=== PATIENT | female | born 1955 | race Caucasian/White ===

== ENCOUNTER 2016-07-20 10:14 | Outpatient (RCR) | payer MEDICARE ==
[~2016-07-20 10:14] MED LIST: ATEN-147 GT; CRS350T PO; DICL75TA2 PO; FLUO40CA PO; GABA-488 PO; METH4TAB PO; METO-270 PO; OMEP20CA12 PO; ONDN4T PO; OXYC30TA80 PO; OXYCONTIN; PERCOCET; SENN-36 PO
== END 2016-09-02 15:07 | disposition home or self-care (01) ==
PROVIDERS: ATTEND Family Medicine
DX: M54.2 Cervicalgia (principal)

== ENCOUNTER 2016-08-03 10:50 | Outpatient (RCR) | payer MEDICARE | END 2016-11-01 | disposition home or self-care (01) | LOC: CARD 10:50 | PROVIDERS: ATTEND Internal Medicine Cardiovascular Disease | DX: G89.4 Chronic pain syndrome (principal); I34.0 Nonrheumatic mitral (valve) insufficiency; R00.2 Palpitations; R06.02 Shortness of breath | CPT/HCPCS: 93225; 93226 ==

== ENCOUNTER → 2016-11-30 | Outpatient (CLI) | payer MEDICARE ==
--- NOTE | 2016-11-30 12:17 | Diagnostic Imaging Report ---
PROCEDURE: MRI lumbar spine. TECHNIQUE: Multiplanar, multisequence MRI of the lumbar spine was performed without contrast. INDICATION: Back pain. FINDINGS: There is a minimal retrolisthesis of L5 over S1. The alignment of the posterior spinal line otherwise is satisfactory. The vertebral body heights are preserved. There is disc desiccation at most levels. There is significant disc height loss at L2/3 and mild disc height loss at L3/4 and L5/S1 levels. There is mild marrow edema along endplates of L2/L3 and L5/S1 levels suggestive of reactive changes to degenerative disc disease. There is no suspicious focal bone marrow abnormality identified. The cauda equina and conus medullaris appear grossly unremarkable. T12/L1: No disc herniation, no spinal canal or foraminal stenosis. There are bilateral perineural cysts measuring 8 mm on each side. L1/2: There is a mild disc bulge and mild facet hypertrophy. No central canal or lateral recess stenosis. No foraminal narrowing. L2/3: There is a diffuse disc bulge and mild facet and ligamentum flavum hypertrophy. There is bilateral minimal lateral recess stenosis with no central canal stenosis. The foramina demonstrate no significant narrowing. L3/4: There is a disc bulge asymmetric to the left side and there is bilateral mild to moderate facet hypertrophy. There is a severe central canal stenosis reducing the AP dimension of the canal to 5.4 mm and there is bilateral lateral recess stenosis severe on the left side and moderate to severe on the right. There is also foraminal stenosis mild to moderate on the right side and moderate to severe on the left. L4/5: There is an asymmetric disc bulge to the left side and bilateral moderate facet and ligamentum flavum hypertrophy. No central canal stenosis. There is moderate to severe stenosis in the left lateral recess abutting the descending left L5 nerve root. Mild right lateral recess stenosis is seen. No foraminal narrowing. L5/S1: There is a minimal retrolisthesis at this level and a diffuse disc bulge asymmetric to the left. There are bilateral mild facet hypertrophy changes. There is no central canal stenosis. The lateral recess demonstrates mild to moderate stenosis bilaterally. The foramina demonstrate mild stenosis bilaterally more prominent on the right side. IMPRESSION: Severe spinal canal stenosis at L3/4 level. Dictated by: Dictated on workstation # [id number]
== END ==
LOC: RAD 07:18
PROVIDERS: ATTEND Nurse Practitioner Family
DX: M48.061 Spinal stenosis, lumbar region without neurogenic claudication (principal)
CPT/HCPCS: 72148

== ENCOUNTER → 2017-05-18 | Outpatient (CLI) | payer MEDICARE ==
[~2017-05-18] MED LIST changes: -METO-270 PO; +METO-387 PO
--- NOTE | 2017-05-18 09:35 | Diagnostic Imaging Report ---
Procedure: Bilateral breast ultrasound limited. Indication: Nipple discharge The diagnostic mammogram performed earlier today failed to show any sign of malignancy. There is no abnormality to account for the patient's bilateral nipple discharge. On this study there is no discrete solid or cystic mass identified. There are few ducts within each retroareolar region but these ducts do not seem to be abnormally dilated and there is no sign of an intraductal mass. Impression: There is no evidence for malignancy and there is no sign of an abnormality to account for the patient's nipple discharge. Clinical followup is recommended. ACR BI-RADS Category 1: Negative. Result letter will be mailed to the patient. Note: At least 10% of breast cancer is not imaged by mammography. Dictated by: Dictated on workstation # [id number]
--- NOTE | 2017-05-19 21:04 | Diagnostic Imaging Report ---
Digital mammogram bilateral diagnostic. The current study was also evaluated with a Computer Aided Detection (CAD) system. INDICATION: Bilateral nipple discharge. This study was compared to the prior exams of 12/16/2015, 03/12/2013, and 02/01/2012. At this time, the patient does note long-standing clear bilateral nipple discharge. FINDINGS: The fibroglandular tissue in both retroareolar regions is heterogeneously dense. This does limit the sensitivity of this exam. When compared to the previous studies, there has been no significant change. There is no primary or secondary sign of malignancy noted. There is no abnormality to account for the patient's nipple discharge. IMPRESSION: 1. There is no evidence of malignancy and there is no abnormality to account for the patient's bilateral nipple discharge. Even so, ultrasound will be recommended for further evaluation of both retroareolar regions. ACR BI-RADS Category 0: Incomplete. (Needs additional imaging evaluation). Result letter will be mailed to the patient. Note: At least 10% of breast cancer is not imaged by mammography. Dictated by: Dictated on workstation # [id number]
== END ==
LOC: RAD 08:02
PROVIDERS: ATTEND Family Medicine
DX: N64.52 Nipple discharge (principal)
CPT/HCPCS: 76642; 77066

== ENCOUNTER → 2017-05-26 | Outpatient (CLI) | payer MEDICARE ==
--- NOTE | 2017-05-26 11:44 | Diagnostic Imaging Report ---
EXAM: CT CHEST SCREENING WO INDICATION: 95-ghmx-uhcv smoking history. COMPARISON: CT chest without contrast 12/16/2015. FINDINGS: The lungs are clear. No pulmonary nodules. No pleural effusion or pneumothorax. Diffuse bronchial wall thickening. No endobronchial lesions. Normal heart size. No pleural or pericardial effusions. No mediastinal, hilar or axillary lymphadenopathy. Mild atherosclerotic calcifications. The visualized upper abdominal contents are unremarkable. No acute osseous findings. IMPRESSION: No pulmonary nodules. LungRads category 1. RECOMMENDATION: Continue annual screening with low dose chest CT in 12 months. Please note that the low-dose technique of this chest CT is of non-diagnostic quality. This study is only intended for lung cancer screening of high risk patients. Dictated by: Dictated on workstation # [id number]
== END ==
LOC: RAD 11:00
PROVIDERS: ATTEND Family Medicine
DX: F17.210 Nicotine dependence, cigarettes, uncomplicated (principal)

== ENCOUNTER → 2019-03-13 | Outpatient (CLI) | payer MEDICARE, OTHER ==
[~2019-03-13] MED LIST changes: -METO-387 PO; +MTP25TSR PO
--- NOTE | 2019-03-13 10:42 | Diagnostic Imaging Report ---
PROCEDURE: CT chest without contrast. TECHNIQUE: Multiple contiguous axial images were obtained through the chest without the use of intravenous contrast. Auto Exposure Controls were utilized during the CT exam to meet ALARA standards for radiation dose reduction. INDICATION: Chronic cough. FINDINGS: The previous CT low-dose lung cancer screening exam of 05/26/2017 failed to show any sign of a parenchymal lung mass that would indicate a malignant process. On this study there is still no evidence for a parenchymal lung mass. The lungs are generally clear and well aerated. There is no sign of failure, pneumonia or a pleural effusion to indicate an acute abnormality. The heart size is within normal limits. Coronary artery calcifications are evident. The aorta is not abnormally dilated. There is no obvious mediastinal or hilar adenopathy. The thyroid gland where visualized is unremarkable. There is no breast mass noted. The sections through the upper abdomen failed to show any sign of an acute abnormality. The bone windows are unremarkable for a fracture or for a destructive lesion. IMPRESSION: 1. There is no evidence for an acute cardiopulmonary abnormality. There is no parenchymal lung mass to suggest malignancy either. 2. Given the patient's history of a greater than thirty-year pack smoking history a follow-up CT low-dose lung cancer screening exam in one year would be recommended for further evaluation. Dictated by: Dictated on workstation # [id number]
== END ==
LOC: RAD 08:38
PROVIDERS: ATTEND Family Medicine
DX: R05 Cough (principal); F17.290 Nicotine dependence, other tobacco product, uncomplicated
CPT/HCPCS: 71250

== ENCOUNTER 2019-03-14 05:58 | Outpatient (CLI) | payer MEDICARE ==
[~2019-03-14] VITALS: Ht 157.5 cm; Wt 55.5 kg
== END 2019-03-14 09:27 | disposition home or self-care (01) ==
LOC: PREOP 05:58
PROVIDERS: ATTEND Internal Medicine
DX: Z01.818 Encounter for other preprocedural examination (principal)

== ENCOUNTER 2019-03-16 08:08 | Day surgery (SDC) | payer MEDICARE, OTHER ==
--- NOTE | 2019-03-13 10:32 | HISTORY AND PHYSICAL ---
DATE OF SERVICE: ESOPHAGOGASTRODUODENOSCOPY HISTORY AND PHYSICAL HISTORY OF PRESENT ILLNESS: The patient is a 64-year-old white female who had at least a 10-pound weight loss over the past year with intermittent dysphagia to solids. She has some burning association despite using b.i.d. omeprazole and p.r.n. antacid therapy. She reports that she had tried pantoprazole taking it just once a day and did not think it worked any better than b.i.d. omeprazole, so she went back to the omeprazole. With this, she has had a chronic cough with an extensive past smoking history and continues to smoke about a pack a day. She denies associated abdominal pain, melena or bright red blood per rectum. I previously performed colonoscopy on her in 2014, at which time she had one hyperplastic polyp removed. She is not aware of any family history for colon cancer. PAST MEDICAL HISTORY: Significant for longstanding low back pain for which she takes diclofenac and oxycodone. She has no known history of coronary artery disease. PAST SURGICAL HISTORY: As a child, she underwent right nephrectomy not for malignant reasons and she has had a tubal ligation in the past. FAMILY HISTORY: Father of complications of coronary artery disease at age 65. He was reportedly a smoker. Mother at the age of 59 of complications of diabetes. There is no reported family history of known GI tract malignancy. SOCIAL HISTORY: She reports no significant alcohol consumption history, but does have a 40 plus pack year smoking history, continues to smoke a pack of cigarettes per day. REVIEW OF SYSTEMS: CONSTITUTIONAL: 10 plus pound weight loss. Denies night sweats, chills or fever. CARDIOVASCULAR: Denies chest pain, syncope, presyncope, orthopnea, PND or pedal edema. PULMONARY: Pertinent for a nonproductive cough for the past year. No drainage is noted. She denies wheezing. GASTROINTESTINAL: As noted in the HPI. PHYSICAL EXAMINATION: GENERAL: Reveals a white female who did exhibit a dry sounding nonproductive cough during the interview. VITAL SIGNS: Weight 122 pounds, BMI 23, blood pressure 130/80. HEENT: Unremarkable. Mallampati II pharyngeal configuration. No erythema or exudate noted. Sclerae are nonicteric. NECK: Revealed no JVD, adenopathy or bruits. CHEST: Clear to auscultation. No wheezes, rales or rhonchi noted. ABDOMEN: Soft, supple without mass, organomegaly or tenderness. Bowel sounds positive. No evidence for abdominal aortic aneurysm to palpation. EXTREMITIES: Reveal no cyanosis, clubbing or edema. ASSESSMENT AND PLAN: Due to her weight loss, intermittent dysphagia with chronic cough, the patient is set up for diagnostic EGD on 03/16/2019. Prep instructions were given and questions were answered. I thank you for the referral of this pleasant lady. As there is no family history for colon cancer with last colonoscopy 5 years ago only revealing one diminutive hyperplastic polyp, which would advocate consideration for repeat screening colonoscopy in another 5 years. Job ID: [id number] DocumentID: [id number] Dictated Date: 03/13/2019 10:04:12 Sweatband Cutting Machine Operator Date: 03/13/2019 10:31:47 Dictated By: TERESITA LEPE MD
[~2019-03-16] VITALS: Ht 157.5 cm; Wt 55.5 kg
[2019-03-16] VITALS (8 sets, daily range): BP systolic 112–142; BP diastolic 53–82
[2019-03-16] MEDS ORDERED: D5 LR IV SOLUTION 1,000 ML IV STA (08:17)
[2019-03-16] MEDS ORDERED: D5 LR IV SOLUTION 1,000 ML IV ONE (08:21)
[2019-03-16] MEDS ORDERED: LIDOCAINE JELLY 2% 6 ML SYRINGE MM PRN (08:30)
[2019-03-16] MEDS ORDERED: fentaNYL INJECTION 100 MCG/2 ML AMP IVP ONE (08:30)
[2019-03-16] MEDS ORDERED: MIDAZOLAM 5 MG/5 ML (VERSED) VIAL ONE (08:45)
[2019-03-16] MEDS ORDERED: fentaNYL INJECTION 100 MCG/2 ML AMP ONE (08:45)
[2019-03-16] MEDS ORDERED: LIDOCAINE JELLY 2% 6 ML SYRINGE ONE (08:45)
--- NOTE | 2019-03-16 08:48 | Pre-Op Note & Conscious Sedat ---
Pre-Operative Progress Note H&P Reviewed The H&P was reviewed, patient examined and no changes noted. Date H&P Reviewed: Mar 16, 2019 Time H&P Reviewed: 08:30 Conscious Sedation Pre-Proced ASA Score 2 For ASA 3 and 4: Consider anesthesia and medical clearance. Also, for patients with a history of failed moderate sedation consider anesthesia. Airway Lungs Heart ASA score ASA 1: a normal healthy patient ASA 2: a patient with a mild systemic disease (mid diabetes, controlled hypertension, obesity ASA 3: a patient with a severe systemic disease that limits activity (angina, COPD, prior Myocardial infarction) ASA 4: a patient with an incapacitating disease that is a constant threat to life (CHF, renal failure) ASA 5: a moribund patient not expected to survive 24 hrs. (ruptured aneurysm) ASA 6: a declared brain- patient whose organs are being harvested. For emergent operations, add the letter E after the classification Mallampati Classification Grade 2 Sedation Plan Analgesia, Amnesia, Plan communicated to team members, Discussed options with patient/fam, Discussed risks with patient/fam The patient is an appropriate candidate to undergo the planned procedure, sedation, and anesthesia. The patient immediately re-assessed prior to indication. TERESITA LEPE MD Mar 16, 2019 08:48
[2019-03-16] MEDS: MIDAZOLAM 5 MG/5 ML (VERSED) VIAL IV PRN ×2 (08:53→08:56)
--- NOTE | 2019-03-16 14:25 | OPERATIVE REPORT ---
DATE OF SERVICE: EGD is performed for evaluation of dysphagia and reflux sounding symptoms. The patient was placed in the left lateral decubitus position. The endoscope was inserted in the oral cavity and under direct visualization, esophagus was intubated. The endoscope was passed down the esophagus through the stomach and second portion of the duodenum. The patient tolerated the procedure well. Careful inspection was made as the endoscope was withdrawn. FINDINGS: The posterior pharynx, arytenoid aperture, true and false vocal folds were unremarkable on gross inspection. The proximal, mid and distal esophagus were unremarkable. There is no evidence for hiatal hernia formation. The Z line was distinct. No evidence for erythema, Rain's change, rings, webs, strictures or extrinsic compression, murmur noted. The cardia and fundus of the stomach were unremarkable. Present in the antrum were some patchy areas of erythema without evidence for erosions or ulceration. No evidence for retained fluid or food was noted. A biopsy was obtained and submitted for Helicobacter. The pylorus, pyloric channel, duodenal bulb and second portion of duodenum were unremarkable. ASSESSMENT: Except for some small areas of patchy antral erythema, this was otherwise normal EGD. Biopsies obtained and submitted for Helicobacter evaluation. There is no evidence for erosive esophagitis or extrinsic compression. Discussed the importance of careful attention to mastication and drinking some water with her meals and as she tends to be a fast eater trying to slow down. She was reassured by today's findings. Thank you for the referral. Job ID: [id number] DocumentID: [id number] Dictated Date: 03/16/2019 09:46:44 Builder Operator Date: 03/16/2019 14:24:13 Dictated By: TERESITA LEPE MD [facility]
== END 2019-03-16 09:50 ==
LOC: ENDO 08:08
PROVIDERS: ATTEND Internal Medicine
DX: K31.89 Other diseases of stomach and duodenum (principal); R13.10 Dysphagia, unspecified; F17.210 Nicotine dependence, cigarettes, uncomplicated; Z88.2 Allergy status to sulfonamides; Z79.891 Long term (current) use of opiate analgesic; Z90.5 Acquired absence of kidney; Z98.51 Tubal ligation status; Z82.49 Family history of ischemic heart disease and other diseases of the circulatory system; Z83.3 Family history of diabetes mellitus

== ENCOUNTER 2019-09-22 10:27 | Emergency (ER) | payer MEDICARE, OTHER ==
[~2019-09-22] VITALS: Ht 160 cm; Wt 59.0 kg
--- NOTE | 2019-09-22 11:04 | ED Cough/URI ---
General Stated Complaint: HX COPD,FEVER,COUGH,SOB Source: patient Exam Limitations: no limitations History of Present Illness Date Seen by Provider: Sep 22, 2019 Time Seen by Provider: 11:01 Initial Comments to ER with reports of increase in her chronic cough, fever up to 100.2, sharp pain in the left side of her chest radiating through to the back constant since last night. . Timing/Duration: yesterday Severity/Quality: moderate Prior Episodes/Possible Cause: occasional episodes Associated Symptoms: chest pain/soreness, cough, fever/chills, shortness of breath (next) Allergies and Home Medications Allergies Coded Allergies: methadone (Unverified Adverse Reaction, Severe, swelling, 08/05/13) Sulfa (Sulfonamide Antibiotics) (Unverified Adverse Reaction, Mild, hives, 08/05/13) Home Medications Carisoprodol 350 Mg Tablet, 350 MG PO Q4H PRN for BACK PAIN, (Reported) Diclofenac Sodium 75 Mg Tablet.dr, 75 MG PO BID, (Reported) Gabapentin 300 Mg Capsule, 300 MG PO TID, (Reported) Metoprolol Succinate 25 Mg Tab.er.24h, 25 MG PO DAILY, (Reported) Omeprazole 20 Mg Capsule.dr, 20 MG PO BID, (Reported) Ondansetron HCl 4 Mg Tab, 4 MG PO PRN PRN for NAUSEA/VOMITING, (Reported) Oxycodone Hcl 30 Mg Tablet, 30 MG PO Q4H PRN for BACK PAIN, (Reported) Sennosides 8.6 Mg Tablet, 8.6 MG PO DAILY, (Reported) Patient Home Medication List Home Medication List Reviewed: Yes Review of Systems Review of Systems Constitutional: see HPI, chills, fever EENTM: see HPI Respiratory: see HPI, cough, short of breath Cardiovascular: see HPI, chest pain Gastrointestinal: see HPI Genitourinary: see HPI Musculoskeletal: see HPI Skin: see HPI Psychiatric/Neurological: See HPI Past Rclzypt-Tkrycw-Nxhtvr Hx Patient Social History Type Used: Cigarettes Recent Hopitalizations: No Immunizations Up To Date Date of Influenza Vaccine: Feb 18, 2019 Seasonal Allergies Seasonal Allergies: No Past Medical History Surgeries: Yes (RIGHT NEPHRECTOMY, X3 BACK SURGERY, SINUS) Orthopedic Respiratory: No Cardiac: Yes Palpitations Neurological: Yes (HX RADICULOPATHY) Reproductive Disorders: No Genitourinary: No Gastrointestinal: Yes Gastroesophageal Reflux, Chronic Constipation Musculoskeletal: Yes Chronic Back Pain Endocrine: No HEENT: No Cancer: No Psychosocial: Yes Depression Integumentary: No Blood Disorders: No Family Medical History Heart Disease, Diabetes Physical Exam Vital Signs - First Documented 09/22/19 10:45 Temp 36.8 Pulse 65 Resp 18 B/P (MAP) 126/52 (76) O2 Delivery Room Air Capillary Refill : Height: 5'2.00" Weight: 131lbs. oz. 59.122723kv; 22.37 BMI Method:Stated General Appearance: WD/WN, no apparent distress (are all normal) Eyes: Bilateral Eye Normal Inspection HEENT: PERRL/EOMI, normal ENT inspection Neck: non-tender, full range of motion (wall) Respiratory: lungs clear, normal breath sounds Cardiovascular: regular rate, rhythm Gastrointestinal: non tender, soft Extremities: normal range of motion, non-tender Neurologic/Psychiatric: alert, oriented x 3 Skin: normal color, warm/dry Progress/Results/Core Measures Suspected Sepsis SIRS Temperature: Pulse: Respiratory Rate: Laboratory Tests 09/22/19 11:05: White Blood Count 6.3 Blood Pressure / Mean: Laboratory Tests 09/22/19 11:05: Creatinine 1.05, Platelet Count 336, Total Bilirubin 0.3 Results/Orders Lab Results Laboratory Tests Test 09/22/19 11:05 Range/Units White Blood Count 6.3 4.3-11.0 10^3/uL Red Blood Count 3.69 L 4.35-5.85 10^6/uL Hemoglobin 11.9 11.5-16.0 G/DL Hematocrit 35 35-52 % Mean Corpuscular Volume 95 80-99 FL Mean Corpuscular Hemoglobin 32 25-34 PG Mean Corpuscular Hemoglobin Concent 34 32-36 G/DL Red Cell Distribution Width 13.9 10.0-14.5 % Platelet Count 336 130-400 10^3/uL Mean Platelet Volume 9.4 7.4-10.4 FL Neutrophils (%) (Auto) 43 42-75 % Lymphocytes (%) (Auto) 45 H 12-44 % Monocytes (%) (Auto) 8 0-12 % Eosinophils (%) (Auto) 4 0-10 % Basophils (%) (Auto) 1 0-10 % Neutrophils # (Auto) 2.7 1.8-7.8 X 10^3 Lymphocytes # (Auto) 2.8 1.0-4.0 X 10^3 Monocytes # (Auto) 0.5 0.0-1.0 X 10^3 Eosinophils # (Auto) 0.2 0.0-0.3 10^3/uL Basophils # (Auto) 0.0 0.0-0.1 10^3/uL D-Dimer 0.34 0.00-0.49 UG/ML Sodium Level 135 135-145 MMOL/L Potassium Level 4.4 3.6-5.0 MMOL/L Chloride Level 103 98-107 MMOL/L Carbon Dioxide Level 23 21-32 MMOL/L Anion Gap 9 5-14 MMOL/L Blood Urea Nitrogen 12 7-18 MG/DL Creatinine 1.05 0.60-1.30 MG/DL Estimat Glomerular Filtration Rate 53 BUN/Creatinine Ratio 11 Glucose Level 84 70-105 MG/DL Calcium Level 8.5 8.5-10.1 MG/DL Corrected Calcium 8.6 8.5-10.1 MG/DL Total Bilirubin 0.3 0.1-1.0 MG/DL Aspartate Amino Transf (AST/SGOT) 14 5-34 U/L Alanine Aminotransferase (ALT/SGPT) 10 0-55 U/L Alkaline Phosphatase 59 40-136 U/L Troponin I < 0.028 <0.028 NG/ML C-Reactive Protein High Sensitivity 0.09 0.00-0.50 MG/DL Total Protein 6.5 6.4-8.2 GM/DL Albumin 3.9 3.2-4.5 GM/DL My Orders Orders - LETTY SHARMA MOTION PICTURE COMMENTATOR Cbc With Automated Diff (09/22/19 10:39) Hs C Reactive Protein (09/22/19 10:39) Chest 1 View, Ap/Pa Only (09/22/19 10:39) Comprehensive Metabolic Panel (09/22/19 10:39) Coronavirus Sars-Cov-2 So 2018 (09/22/19 10:39) Fibrin Degradation Products (09/22/19 10:58) Troponin I (09/22/19 10:58) Ekg Tracing (09/22/19 10:58) Vital Signs/I&O 09/22/19 09/22/19 10:45 10:45 Temp 36.8 Pulse 65 Resp 18 B/P (MAP) 126/52 (76) O2 Delivery Room Air Capillary Refill : Departure Impression Primary Impression: COPD exacerbation Disposition: 01 HOME, SELF-CARE Condition: Stable Departure-Patient Inst. Decision time for Depature: 12:07 Referrals: MERCEDES ALFARO MD (PCP/Family) Primary Care Physician Patient Instructions: Exacerbation of COPD Add. Discharge Instructions: return to er for any worsening, see your doctor next week. antibiotics and steroids as directed Scripts Prednisone (Prednisone) 20 Mg Tab 40 MG PO DAILY, #6 TAB 0 Refills Prov: LETTY SHARMA APRN 09/22/19 Azithromycin (Zithromax) 250 Mg Tablet 250 MG PO UD, #6 TAB TAKE 2 TABLETS TODAY, THEN TAKE 1 TABLET DAILY FOR 4 MORE DAYS Prov: LETTY SHARMA APRN 09/22/19 LETTY SHARMA APRN Sep 22, 2019 11:04
--- NOTE | 2019-09-22 11:24 | Diagnostic Imaging Report ---
EXAMINATION: Chest 1 view HISTORY: cough COMPARISON: 11/01/2013 FINDINGS: The lungs are clear without edema or pneumonia. No pleural effusion or pneumothorax. Heart size is normal. IMPRESSION: 1. Clear lungs. Dictated by: Dictated on workstation # [id number]
[2019-09-22 11:37] LABS: BASOPHILS % (AUTO) 1 % (0-10); EOSINOPHILS # (AUTO) 0.2 10^3/uL (0.0-0.3); EOSINOPHILS % (AUTO) 4 % (0-10); HEMATOCRIT 35 % (35-52); HEMOGLOBIN 11.9 G/DL (11.5-16.0); LYMPHOCYTES # (AUTO) 2.8 X 10^3 (1.0-4.0); LYMPHOCYTES % (AUTO) 45 % (12-44); MEAN CORPUSCULAR HEMOGLOBIN 32 PG (25-34); MEAN CORPUSCULAR HGB CONC 34 G/DL (32-36); MEAN CORPUSCULAR VOLUME 95 FL (80-99); MEAN PLATELET VOLUME 9.4 FL (7.4-10.4); MONOCYTES # (AUTO) 0.5 X 10^3 (0.0-1.0); MONOCYTES % (AUTO) 8 % (0-12); NEUTROPHILS # (AUTO) 2.7 X 10^3 (1.8-7.8); NEUTROPHILS % (AUTO) 43 % (42-75); PLATELET COUNT 336 10^3/uL (130-400); RED CELL DISTRIBUTION WIDTH 13.9 % (10.0-14.5); WHITE BLOOD COUNT 6.3 10^3/uL (4.3-11.0)
[2019-09-22 11:56] LABS: ALANINE AMINOTRANSFERASE 10 U/L (0-55); ALBUMIN 3.9 GM/DL (3.2-4.5); ALKALINE PHOSPHATASE 59 U/L (40-136); BILIRUBIN,TOTAL 0.3 MG/DL (0.1-1.0); BUN/CREATININE RATIO 11; CALCIUM 8.5 MG/DL (8.5-10.1); CARBON DIOXIDE 23 MMOL/L (21-32); CHLORIDE 103 MMOL/L (98-107); CREATININE SERUM 1.05 MG/DL (0.60-1.30); GFR ESTIMATED 53; GLUCOSE 84 MG/DL (70-105); POTASSIUM 4.4 MMOL/L (3.6-5.0); SODIUM 135 MMOL/L (135-145); TOTAL PROTEIN 6.5 GM/DL (6.4-8.2)
[2019-09-22 12:08] VITALS: BP 115/47
[2019-09-22] MEDS ORDERED: PRD20T PO (12:09)
[2019-09-22] MEDS ORDERED: AZIT250T PO (12:09)
== END 2019-09-22 12:14 | disposition home or self-care (01) ==
LOC: EDUNIT# 10:27 → ER 10:28
DX: J44.1 Chronic obstructive pulmonary disease with (acute) exacerbation (principal); K21.9 Gastro-esophageal reflux disease without esophagitis; G89.29 Other chronic pain; M54.9 Dorsalgia, unspecified; K59.09 Other constipation; Z20.828 Contact with and (suspected) exposure to other viral communicable diseases; Z88.5 Allergy status to narcotic agent; Z88.2 Allergy status to sulfonamides; Z79.891 Long term (current) use of opiate analgesic; Z82.49 Family history of ischemic heart disease and other diseases of the circulatory system
CPT/HCPCS: 71045; 80053; 84484; 85025; 85379; 86141; 99284; U0002; 36415; 87635; 93005

== ENCOUNTER 2019-12-14 09:32 | Outpatient (RCR) | payer MEDICARE, OTHER ==
[~2019-12-14 09:32] MED LIST changes: +AZIT250T PO; +PRD20T PO
== END 2020-02-18 10:45 | disposition home or self-care (01) ==
PROVIDERS: ATTEND Family Medicine
DX: M54.5 Low back pain (principal)

== ENCOUNTER → 2019-12-28 | Outpatient (CLI) | payer MEDICARE, OTHER ==
--- NOTE | 2019-12-28 11:06 | Diagnostic Imaging Report ---
INDICATION: Chronic neck pain. Time of exam 9:50 AM Three-view cervical spine were obtained. Curvature of the cervical spine is normal. There is minimal anterolisthesis of C3 on C4, C4 on C5, and C7 on T1, with minimal retrolisthesis of C5 on C6. Multilevel degenerative disc disease is noted with variable disc space narrowing and marginal spurring. There is multilevel facet arthropathy. No fractures are seen. Prevertebral tissues are within normal limits. IMPRESSION: Cervical spondylosis and listhesis. No acute bony abnormality is detected. Dictated by: Dictated on workstation # [id number]
--- NOTE | 2019-12-28 11:35 | Diagnostic Imaging Report ---
INDICATION: Back pain. Time of exam 9:54 AM There is normal thoracic kyphotic curvature. Very slight right convexity thoracic scoliotic curvature is noted. Vertebral body heights are maintained. No acute compression fracture is seen. Pedicles and paraspinous line are intact. IMPRESSION: No acute bony abnormality is detected. Dictated by: Dictated on workstation # [id number]
== END ==
LOC: RAD 09:30
PROVIDERS: ATTEND Nurse Practitioner Family
DX: M47.812 Spondylosis without myelopathy or radiculopathy, cervical region (principal); M43.12 Spondylolisthesis, cervical region
CPT/HCPCS: 72040; 72072

== ENCOUNTER → 2020-03-14 | Outpatient (CLI) | payer MEDICARE, OTHER ==
--- NOTE | 2020-03-14 08:59 | Diagnostic Imaging Report ---
EXAMINATION: CT Chest without contrast (lung screening). TECHNIQUE: Multiple contiguous axial images were obtained through the chest without the use of intravenous contrast according to lung cancer screening protocol. All CT scans use one or more of the following dose optimizing techniques: automated exposure control, MA and/or KvP adjustment based on a patient size and exam type, or iterative reconstruction. HISTORY: 30 pack year history of smoking. COMPARISON: 05/26/2017 FINDINGS: There is no edema or pneumonia. No pleural effusion. No pneumothorax. No suspicious nodules. There is no axillary or supraclavicular lymphadenopathy. There is no mediastinal lymphadenopathy. Heart size is normal. There are mild coronary artery calcifications. No pericardial effusion. Aorta is normal in caliber. Limited views of the upper abdomen are unremarkable. There are no suspicious osseus lesions. IMPRESSION: 1. No suspicious pulmonary nodules. LUNG-RADS CATEGORY: 1 MODIFIER: None. Dictated by: Dictated on workstation # [id number]
== END ==
LOC: RAD 08:15
PROVIDERS: ATTEND Nurse Practitioner Family
DX: Z12.2 Encounter for screening for malignant neoplasm of respiratory organs (principal); F17.210 Nicotine dependence, cigarettes, uncomplicated
CPT/HCPCS: 71271

== ENCOUNTER → 2020-11-14 | Outpatient (CLI) | payer MEDICARE, OTHER ==
--- NOTE | 2020-11-14 14:03 | Diagnostic Imaging Report ---
PROCEDURE: MRI lumbar spine. TECHNIQUE: Multiplanar, multisequence MRI of the lumbar spine was performed without contrast. INDICATION: Lumbar back pain. COMPARISON: Lumbar spine MRI without contrast 11/30/2016. FINDINGS: Moderate left apex lumbar curvature. Alignment is otherwise unremarkable. Vertebral body heights preserved. Moderate degenerative endplate changes at L2-S1. No suspicious bone marrow signal. No abnormal signal in the conus which terminates at L1-L2. Normal morphology of the cauda equina. Visualized pelvis and paravertebral soft tissues are unremarkable. L1-L2: Mild facet arthropathy. No spinal canal, lateral recess narrowing. Lumbar curvature contributes to mild to moderate right neural foraminal narrowing. L2-L3: Ligamentous hypertrophy and facet arthropathy combined with broad-based disc bulging to result in moderate right and mild left lateral recess narrowing. Moderate right and mild left neural foraminal narrowing. No substantial spinal canal narrowing. L3-L4: Annular disc bulging, ligamentous hypertrophy and facet arthropathy result in moderate spinal canal stenosis. Severe left lateral recess narrowing. Severe bilateral neural foraminal narrowing. L4-L5: Left paracentral disc extrusion with inferior migration has progressed since prior exam. This results in severe spinal canal stenosis. Moderate bilateral neural foraminal narrowing. L5-S1: Left paracentral disc extrusion results in moderate left lateral recess and mild right lateral recess narrowing. No substantial spinal canal narrowing. Moderate bilateral neural foraminal narrowing. IMPRESSION: 1. Interval progression of spondylotic changes now result in severe spinal canal stenosis at L4-L5, moderate spinal canal stenosis at L3-L4. 2. Multilevel high-grade lateral recess and neural foraminal narrowing detailed above. Dictated by: Dictated on workstation # [id number]
== END ==
LOC: RAD 10:45
PROVIDERS: ATTEND Nurse Practitioner Family
DX: M47.816 Spondylosis without myelopathy or radiculopathy, lumbar region (principal); M51.26 Other intervertebral disc displacement, lumbar region; M48.061 Spinal stenosis, lumbar region without neurogenic claudication; M24.28 Disorder of ligament, vertebrae
CPT/HCPCS: 72148

== ENCOUNTER → 2021-06-02 | Outpatient (CLI) | payer MEDICARE, OTHER ==
--- NOTE | 2021-06-02 15:59 | Diagnostic Imaging Report ---
INDICATION: Routine screening. COMPARISON: 05/18/2017 and 12/16/2015. TECHNIQUE: 2D and 3D bilateral screening mammography was performed with CAD. FINDINGS: Scattered fibroglandular densities are identified bilaterally. The parenchymal pattern is stable. No mass or malignant-appearing microcalcifications are seen. The axillae are unremarkable. IMPRESSION: No mammographic features suspicious for malignancy are identified. ACR BI-RADS Category 1: Negative. Result letter will be mailed to the patient. Note: At least 10% of breast cancer is not imaged by mammography. Dictated by: Dictated on workstation # [id number]
--- NOTE | 2021-06-02 16:30 | Diagnostic Imaging Report ---
INDICATION: Asymptomatic postmenopausal female. COMPARISON: None. FINDINGS: AP Spine L1-L4: [BMD (g/cm2): NA] [T-Score: NA] [Z-Score: NA] [BMD Previous: NA] [BMD % Change: NA] LT Hip Neck: [BMD (g/cm2): 0.694] [T-Score: -2.5] [Z-Score: -0.7] LT Hip Total: [BMD (g/cm2):0.683] [T-Score:-2.6] [Z-Score: -1.0] [BMD Previous: NA] [BMD % Change: NA] RT Hip Neck: [BMD (g/cm2):0.692] [T-Score:-2.5] [Z-Score:-0.7] RT Hip Total: [BMD (g/cm2):0.690] [T-score:-2.5] [Z-Score:-1.0] [BMD Previous:NA] [BMD % Change:NA] *Indicates significant change from prior examination based on 95% confidence level. World Health Organization criteria for BMD interpretation classify patients as Normal (T-score at or above -1.0), Osteopenic (T-score between -1.0 and -2.5) or Osteoporotic (T-score at or below -2.5). LIMITATIONS AND MODIFICATION: None. FRACTURE RISK (FRAX SCORE): The ten year probability of (%): Major Osteoporotic Fracture: [NA] Hip Fracture: [NA] IMPRESSION: 1. Osteoporosis. 2. Baseline examination. 3. See below National Osteoporosis Foundation guidelines on when to potentially initiate pharmacologic therapy. Based on the National Osteoporosis Foundation Guidelines, pharmacologic treatment should be initiated in any of the following, unless clinical conditions suggest otherwise: * Any patient with prior fragility fracture of the hip or vertebrae. A spine fracture indicates 5X risk for subsequent spine fracture and 2X risk for subsequent hip fracture. * Osteoporosis (T-score <-2.5). * Postmenopausal women and men age 50 and older with low bone mass/osteopenia (T-score between -1.0 and -2.5) by DXA and 10-year major osteoporotic fracture greater than 20% or a 10-year probability of hip fracture greater than 3%. These fracture risks are supplied above in the FRAX score, if applicable. * Clinician judgement and/or patient preferences may indicate treatment for people with 10-year fracture probabilities above or below these levels. Dictated by: Dictated on workstation # [id number]
== END ==
LOC: RAD 11:30
PROVIDERS: ATTEND Nurse Practitioner Family
DX: Z12.31 Encounter for screening mammogram for malignant neoplasm of breast (principal); M81.0 Age-related osteoporosis without current pathological fracture; Z78.0 Asymptomatic menopausal state
CPT/HCPCS: 77063; 77067; 77080

== ENCOUNTER → 2021-08-05 | Outpatient (CLI) | payer MEDICARE, OTHER ==
[~2021-08-05] VITALS: Ht 157.5 cm; Wt 55.8 kg
[~2021-08-05] MED LIST changes: +CARI350T27 PO; +GABA-490 PO; +OMEP20TA56 PO; +OXYC-527 PO
== END | disposition home or self-care (01) ==
LOC: PREOP 05:38
PROVIDERS: ATTEND Internal Medicine
DX: Z01.818 Encounter for other preprocedural examination (principal)

== ENCOUNTER 2021-08-14 06:57 | Day surgery (SDC) | payer MEDICARE, OTHER ==
--- NOTE | 2021-08-05 08:14 | HISTORY AND PHYSICAL ---
DATE OF SERVICE: PANENDOSCOPY HISTORY AND PHYSICAL DATE OF ADMISSION: ____. HISTORY OF PRESENT ILLNESS: The patient is a 66-year-old white female referred by Dr. Jeronimo for consideration of panendoscopy. She was due for screening colonoscopy, but reports that despite omeprazole and misoprostol, has reflux symptoms with burning up to the back of her throat most days of the week. She denies dysphagia. She reports that her weight has been stable and she has not noted any melena or bright red blood per rectum. She does report history of anemia. They did add Carafate with some improvement several days ago in her symptoms. She is a current pack per day smoker with over 21-sfuk-ubvk smoking history. She is not aware of any family history for GI tract malignancy. PAST MEDICAL HISTORY: Significant for longstanding low back pain for which she takes diclofenac and oxycodone. She reports no known history of hypertension, hyperlipidemia, vascular or pulmonary disease. FAMILY HISTORY: Father of complications of coronary artery disease at age 65. He was reportedly a heavy smoker. Mother at age 59 of complications of diabetes. SOCIAL HISTORY: She reports a 40 plus pack year smoking history and no significant alcohol intake. REVIEW OF SYSTEMS: CONSTITUTIONAL: Denies night sweats, chills, fever or change in weight. CARDIOVASCULAR: Denies chest pain, syncope, presyncope, orthopnea, PND or pedal edema. PULMONARY: Reports nonproductive cough for the past several years. No wheezing and no shortness of breath. GASTROINTESTINAL: As noted in the HPI. PHYSICAL EXAMINATION: GENERAL: Reveals normal weight white female, appears to be in no acute distress. VITAL SIGNS: Blood pressure 110/60 and weight is 123.4 pounds. HEENT: Unremarkable. Sclerae nonicteric. CHEST: Clear to auscultation. CARDIOVASCULAR: Reveals a regular rate and rhythm without murmur, S3 or S4. ABDOMEN: Soft, supple without mass or organomegaly. Mild epigastric discomfort to palpation. No rebound or guarding noted. Bowel sounds positive. EXTREMITIES: Reveal no cyanosis, clubbing or edema. ASSESSMENT AND PLAN: The patient is set up for screening colonoscopy and diagnostic EGD due to reflux symptoms refractory to PPI therapy and smoker in addition to epigastric pain on physical examination. Prep instructions with Suprep kit were given and questions were answered. I thank you for the referral of this pleasant lady. Job ID: [id number] DocumentID: [id number] Dictated Date: 07/29/2021 16:50:12 Academic Coach Date: 07/29/2021 16:57:18 Dictated By: TERESITA LEPE MD
[~2021-08-14] VITALS: Ht 157.5 cm; Wt 55.8 kg
[2021-08-14] MEDS ORDERED: LACTATED RINGERS 1,000 ML IV STA (07:06)
[2021-08-14] MEDS ORDERED: LACTATED RINGERS 1,000 ML IV ONE (07:10)
[2021-08-14] MEDS ORDERED: MIDAZOLAM 2 MG/2 ML (VERSED) VIAL ONE (07:13)
[2021-08-14] MEDS ORDERED: PROPOFOL INJECTION 50 ML IV ONE (07:13)
[2021-08-14] MEDS ORDERED: HURRICAINE EXT TUBE (BENZOCAINE) XX PRN (07:15)
[2021-08-14 07:26] VITALS: BP 133/63
--- NOTE | 2021-08-14 08:04 | Pre-Op Note & Conscious Sedat ---
Pre-Operative Progress Note H&P Reviewed The H&P was reviewed, patient examined and no changes noted. Date H&P Reviewed: Aug 14, 2021 Time H&P Reviewed: 08:04 Conscious Sedation Pre-Proced ASA Score 2 For ASA 3 and 4: Consider anesthesia and medical clearance. Also, for patients with a history of failed moderate sedation consider anesthesia. Airway Lungs Heart ASA score ASA 1: a normal healthy patient ASA 2: a patient with a mild systemic disease (mid diabetes, controlled hypertension, obesity ASA 3: a patient with a severe systemic disease that limits activity (angina, COPD, prior Myocardial infarction) ASA 4: a patient with an incapacitating disease that is a constant threat to life (CHF, renal failure) ASA 5: a moribund patient not expected to survive 24 hrs. (ruptured aneurysm) ASA 6: a declared brain- patient whose organs are being harvested. For emergent operations, add the letter E after the classification Mallampati Classification Grade 2 Sedation Plan Analgesia, Amnesia, Plan communicated to team members, Discussed options with patient/fam, Discussed risks with patient/fam The patient is an appropriate candidate to undergo the planned procedure, sedation, and anesthesia. The patient immediately re-assessed prior to indication. TERESITA LEPE MD Aug 14, 2021 08:04
[2021-08-14] MEDS ORDERED: ESMOLOL 100 MG/10 ML (BREVIBLOC) VIAL ONE (08:51)
[2021-08-14] MEDS ORDERED: GLYCOPYRROLATE 0.2 MG/ML (ROBINUL) 2 ML VIAL ONE (09:11)
[2021-08-14 09:15] VITALS: BP 109/63
[2021-08-14 09:20] VITALS: BP 117/64
[2021-08-14 09:40] VITALS: BP 120/62
[2021-08-14 09:45] VITALS: BP 120/62
--- NOTE | 2021-08-14 09:55 | Anesthesia-General Post-Op ---
MAC Patient Condition Mental Status/LOC: Same as Preop Cardiovascular: Satisfactory Nausea/Vomiting: Absent Respiratory: Satisfactory Pain: Controlled Complications: Absent Post Op Complications Complications None Follow Up Care/Instructions Patient Instructions None needed. Anesthesiology Discharge Order Discharge Order Patient is doing well, no complaints, stable vital signs, no apparent adverse anesthesia problems. No complications reported per nursing. COLLEEN VOGEL CRNA Aug 14, 2021 09:55
--- NOTE | 2021-08-14 17:40 | OPERATIVE REPORT ---
DATE OF SERVICE: PANENDOSCOPY SUMMARY INDICATION FOR THE PROCEDURE: Gastroesophageal reflux disease symptoms refractory to PPI and screening colonoscopy. DESCRIPTION OF PROCEDURE: The patient was placed in the left lateral decubitus position. The endoscope was inserted in the oral cavity and under direct visualization, esophagus was intubated. The endoscope was passed down the esophagus through stomach into the second portion of the duodenum. Careful inspection was made as the endoscope was withdrawn. FINDINGS: The posterior pharynx, epiglottis, arytenoid aperture and true and false vocal folds were unremarkable on visual inspection. The proximal, mid and distal esophagus, say for the fact that the distal esophagus level of the lower esophageal sphincter was patent a good portion of the time, was unremarkable. There was no evidence to suggest Rain's change. No significant evidence for hiatal hernia was noted and the Z line was distinct without erythema or evidence for erosive esophagitis. There was no evidence to suggest extrinsic compression. The cardia of the stomach was unremarkable. Multiple small to medium size fundal appearing polyps were noted in the fundus, the largest one was removed and submitted for histopathology. The antrum, pylorus, pyloric channel, duodenal bulb, and second portion of the duodenum were unremarkable. ASSESSMENT: Findings compatible with lower esophageal sphincter laxity are noted in addition to multiple fundal polyps, likely related to longstanding proton pump inhibitor therapy. There was no evidence for hiatal hernia, Rain's change or erosive esophagitis. Discussed continuing current medications and nonmedication management of reflux symptoms, specifically trying to limit portion sizes and not eating with minimal fluids 3-4 hours before bedtime. We then proceeded with colonoscopy. The patient was placed in the left lateral decubitus position. Prior to undergoing colonoscopy, a digital rectal evaluation was performed. Anal sphincter tone was normal and the perianal reflexes intact. No abnormalities were noted on digital inspection of the anal canal or distal rectal vault. The colonoscope was inserted into the rectum and under direct visualization advanced to the cecum. Photographic documentation was obtained. The quality of the prep was good. FINDINGS: There was no evidence for internal or external hemorrhoids and the rectum, sigmoid colon, descending colon, splenic flexure, transverse colon, hepatic flexure, ascending colon, and cecum were unremarkable. No evidence for diverticular disease. ASSESSMENT: Normal colonoscopy to the cecum under good prep conditions. I would consider repeat screening colonoscopy in 10 years. I thank you for the referral of this pleasant lady. Job ID: [id number] DocumentID: [id number] Dictated Date: 08/14/2021 09:19:02 District Scout Executive Date: 08/14/2021 17:39:57 Dictated By: TERESITA LEPE MD MTDD
== END 2021-08-14 09:55 | disposition home or self-care (01) ==
LOC: ENDO 06:57
PROVIDERS: ATTEND Internal Medicine
DX: Z12.11 Encounter for screening for malignant neoplasm of colon (principal); K31.7 Polyp of stomach and duodenum; F17.210 Nicotine dependence, cigarettes, uncomplicated; M54.50 Low back pain, unspecified; Z79.891 Long term (current) use of opiate analgesic; Z79.1 Long term (current) use of non-steroidal anti-inflammatories (NSAID); Z79.899 Other long term (current) drug therapy
CPT/HCPCS: 43239; G0121; 88305

== ENCOUNTER 2021-10-18 11:54 | Emergency (ER) | payer MEDICARE, OTHER ==
[~2021-10-18] VITALS: Ht 157.4 cm; Wt 54.4 kg
--- NOTE | 2021-10-18 12:52 | ED General ---
General Chief Complaint: Lower Extremity Stated Complaint: RIGHT ANKLE INJURY Nursing Triage Note: PT TO FT1 WITH CC OF R FOOT INJURY THAT OCCURED THIS AM. PT REPROTS WAS TRYING TO STOP DOG FROM RUNNING BY PLACING FOOT IN FRONT OF IT, AND DOG CAME IN CONTACT WITH HER FOOT. Source of Information: Patient, Family Exam Limitations: No Limitations (IDA CHAVEZ MED STUDENT) History of Present Illness Date Seen by Provider: Oct 18, 2021 Time Seen by Provider: 12:30 Initial Comments Ivanna Browning is a 66 yo female who presents for right ankle/foot injury that occurred this morning at 0930. Pt has hx of osteoporosis and chronic back pain. Pt reports she stuck her foot out to stop her dog and it made contact with the medial aspect of the right foot. Pt felt pain following the incident and could not bear weight on right foot without sharp shooting pain from anterior dorsal aspect of foot up into the lateral ankle. Pt states she takes oxycodone for her back pain and took one not long before the incident. She also took ibuprofen 1 hr ago. Neither have helped that much. She rates her pain a 2/10 at rest currently. Pt sought medical treatment d/t not being able to bear weight. She is using a cane to relieve pressure on the foot. She states she intermittently uses a cane d/t back pain. In ED pt is able to bear weight on foot with intermittent sharp shooting pain. Eversion and dorsiflexion increase pain. Pt denies numbness or weakness in RLE. Timing/Duration: 1-3 Hours Associated Systoms: Denies Symptoms (IDA CHAVEZ MED STUDENT) Allergies and Home Medications Allergies Coded Allergies: methadone (Unverified Adverse Reaction, Severe, swelling, 08/05/13) Sulfa (Sulfonamide Antibiotics) (Unverified Adverse Reaction, Mild, hives, 08/05/13) Patient Home Medication List Home Medication List Reviewed: Yes (KELLEY PORTER MD) Carisoprodol (Carisoprodol) 350 Mg Tablet, 350 MG PO DAILY, (Reported) Entered as Reported by: MAJOR JOSÉ on 08/05/211546 Diclofenac Sodium (Diclofenac Sodium) 75 Mg Tablet.dr, 75 MG PO DAILY, (Reported) Entered as Reported by: MAJOR JOSÉ on 6/22/22 1547 Gabapentin (Gabapentin) 400 Mg Capsule, 300 MG PO TID, (Reported) Entered as Reported by: MAJOR JOSÉ on 08/05/21 154 Metoprolol Succinate (Metoprolol Succinate) 25 Mg Tab.er.24h, 25 MG PO DAILY, (R eported) Entered as Reported by: JO ANN CHOE on 10/29/14 0930 Omeprazole (Omeprazole) 20 Mg Tablet.dr, 20 MG PO DAILY, (Reported) Entered as Reported by: MAJOR JOSÉ on 08/05/21 154 Oxycodone HCl (Oxycodone HCl) 30 Mg Tablet, 30 MG PO DAILY, (Reported) Entered as Reported by: MAJOR JOSÉ on 08/05/211546 Review of Systems Review of Systems Constitutional: No chills, No fever EENTM: No blurred vision, No vision loss Respiratory: No cough, No short of breath Cardiovascular: No chest pain, No palpitations Gastrointestinal: no symptoms reported Genitourinary: no symptoms reported Musculoskeletal: back pain (chronic) Skin: no symptoms reported Psychiatric/Neurological: No Symptoms Reported Hematologic/Lymphatic: No Symptoms Reported Immunological/Allergic: no symptoms reported (IDA CHAVEZ) Past Rnyoevw-Bugvce-Whkhtg Hx Patient Social History Tobacco Use?: Yes Tobacco type used: Cigarettes Smoking Status: Current Everyday Smoker Substance use?: No Alcohol Use?: No Pt feels they are or have been: No (IDA CHAVEZ) Immunizations Up To Date First/Initial COVID19 Vaccinat: 2020 Second COVID19 Vaccination Abhinav: 2020 Third COVID19 Vaccination Date: NO (IDA CHAVEZ) Seasonal Allergies Seasonal Allergies: No (IDA CHAVEZ) Past Medical History Surgeries: Yes (RIGHT NEPHRECTOMY, X3 BACK SURGERY, SINUS) Orthopedic Respiratory: No Cardiac: Yes High Cholesterol, Hypertension, Palpitations Neurological: Yes (HX RADICULOPATHY) Reproductive Disorders: No Genitourinary: No Gastrointestinal: Yes Gastroesophageal Reflux, Chronic Constipation Musculoskeletal: Yes Arthritis, Chronic Back Pain Endocrine: No HEENT: No Cancer: No Psychosocial: Yes Depression Integumentary: No Blood Disorders: No (IDA CHAVEZ) Family Medical History Heart Disease, Diabetes (IDA CHAVEZ) Physical Exam Vital Signs Vital Signs - First Documented 10/18/21 12:11 Temp 37.1 Pulse 65 Resp 20 B/P (MAP) 116/54 (74) Pulse Ox 97 O2 Delivery Room Air (KELLEY PORTER MD) Vital Signs Capillary Refill : Less Than 3 Seconds (IDA CHAVEZ MED STUDENT) Height, Weight, BMI Height: 5'2.00" Weight: 131lbs. oz. 59.244852wv; 21.00 BMI Method:Stated General Appearance: No Apparent Distress, WD/WN HEENT: PERRL/EOMI, Pharynx Normal Neck: Full Range of Motion, Normal Inspection Respiratory: Chest Non Tender, No Accessory Muscle Use, No Respiratory Distress Cardiovascular: Regular Rate, Rhythm, Normal Peripheral Pulses Extremity: Normal Capillary Refill, Other (right foot medial edema, tenderness on eversion and dorsiflexion and palpation of dorsal foot and lateral ankle) Neurologic/Psychiatric: Alert, Normal Mood/Affect Skin: Normal Color, Warm/Dry Lymphatic: No Adenopathy (IDA CHAVEZ MED STUDENT) Progress/Results/Core Measures Suspected Sepsis SIRS Temperature: Pulse: 65 Respiratory Rate: 20 Blood Pressure 116 /54 Mean: 74 (IDA CHAVEZ MED STUDENT) Results/Orders My Orders Orders - KELLEY PORTER MD Foot, Right, 3 View (10/18/21 12:45) (KELLEY PORTER MD) Vital Signs/I&O 10/18/21 10/18/21 12:11 13:16 Temp 37.1 Pulse 65 65 Resp 20 20 B/P (MAP) 116/54 (74) 116/54 Pulse Ox 97 97 O2 Delivery Room Air Room Air (KELLEY PORTER MD) Vital Signs/I&O Capillary Refill : Less Than 3 Seconds (IDA CHAVEZ MED STUDENT) Blood Pressure Mean: 74 Progress Note : Time: 13:11 Progress Note 66yo female with right foot pain after her [employer] Doodle ran into her foot. She did not fall. Initially could not bear weight due to pain in the right foot - laterally. Now able to bear some weight. No numbness, tingling or weakness. No leg or knee pain. Did not fall. Exam pertinent for pain in the proximal lateral foot. Small ecchymoses on the dorsum. No joint instability or bony point tenderness. NVI. Plan - RICE care and follow up with PCP. (KELLEY PORTER MD) Departure Impression Primary Impression: Contusion of right foot Qualified Codes: S90.31XA - Contusion of right foot, initial encounter Disposition: HOME, SELF-CARE Condition: Stable Departure-Patient Inst. Decision time for Depature: 13:10 (KELLEY PORTER MD) Referrals: MERCEDES ALFARO MD (PCP/Family) Primary Care Physician Patient Instructions: Eye Contusion (DC) Add. Discharge Instructions: Take Tylenol and/or ibuprofen as needed for pain. You can also continue your prescribed chronic pain medications. Ice packs and elevation. Walking on the sprain actually may speed healing. Return to the emergency department for any new, concerning or emergent complaints. Verification and Attestation of Medical Student E/M Service A medical student performed and documented this service in my presence. I reviewed and verified all information documented by the medical student and made modifications to such information, when appropriate. I personally performed the physical exam and medical decision making. Kelley Porter, Oct 18, 2021,13:13 (KELLEY PORTER MD) Copy Copies To 1: MERCEDES ALFARO MD, [place] A MED STUDENT Oct 18, 2021 12:52 KELLEY PORTER MD Oct 18, 2021 13:07
--- NOTE | 2021-10-18 13:04 | Diagnostic Imaging Report ---
CLINICAL HISTORY: Right foot injury. Right foot pain. COMPARISON: None. TECHNIQUE: 3 views of the right foot. FINDINGS: There is no acute fracture or dislocation of the right foot. No focal osseous lesions are seen. The imaged joint spaces are preserved. IMPRESSION: 1. No acute fracture or dislocation in the right foot. Dictated by: Dictated on workstation # [id number]
[2021-10-18 13:16] VITALS: BP 116/54
== END 2021-10-18 13:16 | disposition home or self-care (01) ==
LOC: EDUNIT# 11:54 → ER 11:57
DX: S90.31XA Contusion of right foot, initial encounter (principal); F17.210 Nicotine dependence, cigarettes, uncomplicated; Z87.39 Personal history of other diseases of the musculoskeletal system and connective tissue; W22.8XXA Striking against or struck by other objects, initial encounter
CPT/HCPCS: 73630

== ENCOUNTER 2022-03-15 05:39 | Outpatient (CLI) | payer MEDICARE, OTHER ==
[~2022-03-15] VITALS: Ht 157.5 cm; Wt 54.5 kg
[2022-03-15] MEDS ORDERED: FLUO10CA29 PO (15:07)
[2022-03-15] MEDS ORDERED: OXYC20TA3 PO (15:07)
== END 2022-03-15 15:12 | disposition home or self-care (01) ==
LOC: PREOP 05:39
PROVIDERS: ATTEND Specialist
DX: Z01.818 Encounter for other preprocedural examination (principal)

== ENCOUNTER → 2022-03-17 | Outpatient (CLI) | payer MEDICARE, OTHER ==
[~2022-03-17] MED LIST changes: +FLUO10CA29 PO; +OXYC20TA3 PO
--- NOTE | 2022-03-17 09:36 | Diagnostic Imaging Report ---
EXAMINATION: CT chest without contrast (lung screening). TECHNIQUE: Multiple contiguous axial images were obtained through the chest without the use of intravenous contrast according to lung cancer screening protocol. All CT scans use one or more of the following dose optimizing techniques: automated exposure control, MA and/or KvP adjustment based on patient size and exam type or iterative reconstruction. HISTORY: 31 pack year history of smoking. COMPARISON: 03/14/2020 FINDINGS: There is no edema or pneumonia. No pleural effusion. No pneumothorax. No suspicious nodules. There is no axillary or supraclavicular lymphadenopathy. There is no mediastinal lymphadenopathy. Heart size is normal. There are mild coronary artery calcifications. No pericardial effusion. Aorta is normal in caliber. Limited views of the upper abdomen are unremarkable. There are no suspicious osseus lesions. IMPRESSION: 1. No suspicious pulmonary nodules. LUNG-RADS CATEGORY: 1 MODIFIER: None. Dictated by: Dictated on workstation # [id number]
== END ==
LOC: RAD 08:45
PROVIDERS: ATTEND Nurse Practitioner Family
DX: Z87.891 Personal history of nicotine dependence (principal)
CPT/HCPCS: 71271

== ENCOUNTER → 2022-03-18 | Outpatient (CLI) | payer MEDICARE, OTHER ==
--- NOTE | 2022-03-18 18:43 | Diagnostic Imaging Report ---
INDICATION: Fall, pain. Frontal and lateral lumbar spine radiographs are correlated with most recent MR 11/14/2020. FINDINGS: Since the prior, there has been posterior and interbody fusion at L4-L5 with laminectomy. There is some loss of the straightening of the cervical curvature with stable trace grade 1 retrolisthesis of L2 on L3, unchanged. Vertebral statures are stable. There appears to be laminectomy at L4-L5. There is mild leftward convexity degenerative rotoscoliotic curvature, unchanged. IMPRESSION: Interval lumbar surgery as described with no adverse interval development or other significant change. Dictated by: Dictated on workstation # [id number]
--- NOTE | 2022-03-18 18:47 | Diagnostic Imaging Report ---
Indication: Fall, neck pain. Frontal and lateral cervical radiographs are compared with exam 12/28/2019., Findings: There is progressive severe spondylosis most advanced at the C5-C6 level where there is disc space obliteration, [id number] endplate sclerosis, osteophytes and progressive grade 1 retrolisthesis of C5 on C6. Elsewhere substantial but less profound degenerative changes showed more mild progression from the prior. No acute-appearing abnormality. Impression: Advanced degenerative changes most profound 5-6 level where there is significant progression stable multilevel grade 1 degenerative listheses, stable statures, no acute finding. Dictated by: Dictated on workstation # [id number]
== END ==
LOC: RAD 12:02
PROVIDERS: ATTEND Nurse Practitioner Family
DX: M47.812 Spondylosis without myelopathy or radiculopathy, cervical region (principal); M43.12 Spondylolisthesis, cervical region; Z98.1 Arthrodesis status
CPT/HCPCS: 72040; 72100

== ENCOUNTER 2022-03-19 09:25 | Day surgery (SDC) | payer MEDICARE, OTHER ==
[~2022-03-19] VITALS: Ht 157.5 cm; Wt 54.5 kg
[2022-03-19] MEDS: TETRACAINE 0.5% OPHTH SOLN 4 ML BTL (SINGLE DOSE ONLY) OU PRN ×4 (09:43→10:00)
[2022-03-19] MEDS ORDERED: POVIDONE (BETADINE) OPHTH SOLN 5% 30 ML OP ONE (09:45)
[2022-03-19] MEDS ORDERED: MOXIFLOXACIN OPHTH SOLN 5 MG/ML 0.3 ML SYRINGE OP ONE (09:45)
[2022-03-19] MEDS ORDERED: TIMOLOL 0.5% (CATARACTS) 0.3 ML BTL OU PRN (09:45)
[2022-03-19] MEDS: PHENYLEPHRINE 10% OPHTH (NEO-SYN) 5 ML BTL OU SCH ×3 (09:51→10:00)
[2022-03-19] MEDS: TROPICAMIDE 1% OPH SOLN (MYDRIACYL) 15 ML BTL OP SCH ×3 (09:51→10:00)
--- NOTE | 2022-03-19 09:52 | Ophthalmologist Pre-Op Note ---
Pre-Operative Progress Note H&P Reviewed The H&P was reviewed, patient examined and no changes noted. Date H&P Reviewed: Mar 19, 2022 Time H&P Reviewed: 09:52 Pre-Op Dx Cataract, Right Eye WALTER PAYNE MD Mar 19, 2022 09:52
[2022-03-19 09:53] VITALS: BP 124/61
[2022-03-19] MEDS ORDERED: MIDAZOLAM 2 MG/2 ML (VERSED) VIAL ONE (09:57)
[2022-03-19] MEDS ORDERED: hydrALAZINE (APESOLINE) 20 MG/ML VIAL ONE (09:58)
--- NOTE | 2022-03-19 10:40 | Ophthalmology Operative Report ---
Cataract removal/placement IOL PREOPERATIVE DIAGNOSIS: Cataract Right Eye POSTOPERATIVE DIAGNOSIS: Cataract Right Eye PROCEDURE: Cataract removal and placement of posterior chamber implant, right eye SURGEON: Regan Payne ANESTHESIA: Topical with sedation COMPLICATIONS: None ESTIMATED BLOOD LOSS: Minimal DESCRIPTION OF PROCEDURE: After proper informed consent was obtained, the patient, a 67 female, was taken to the Operating Room and the right eye was anesthetized with tetracaine. The right eye was then prepped and draped in the usual manner. A wire lid speculum was placed. A paracentesis was made at the left hand position. Preservative free lidocaine was injected into the anterior chamber followed by viscoelastic. A clear corneal incision was made in the temporal position. A capsulorrhexis was preformed and the central nuclear and cortical material were removed. The posterior capsule was polished and Dmitriy 22.0 AU00T0 IOL was placed into the capsular bag. The residual viscoelastic was aspirated and balanced saline solution was injected into the anterior chamber. Moxifloxacin was injected into the anterior chamber. The wound was checked and found to be water tight. The patient tolerated the procedure well without complications. REGAN PAYNE MD Mar 19, 2022 10:40
[2022-03-19 10:43] VITALS: BP 144/66
--- NOTE | 2022-03-19 12:14 | Anesthesia-General Post-Op ---
MAC Patient Condition Mental Status/LOC: Same as Preop Cardiovascular: Satisfactory Nausea/Vomiting: Absent Respiratory: Satisfactory Pain: Controlled Complications: Absent Post Op Complications Complications None Follow Up Care/Instructions Patient Instructions None needed. Anesthesiology Discharge Order Discharge Order Patient is doing well, no complaints, stable vital signs, no apparent adverse anesthesia problems. No complications reported per nursing. ARIELLA TOMAS CRNA Mar 19, 2022 12:14
== END 2022-03-19 10:46 | disposition home or self-care (01) ==
LOC: SDC 09:25
PROVIDERS: ATTEND Specialist
DX: H25.9 Unspecified age-related cataract (principal); F17.290 Nicotine dependence, other tobacco product, uncomplicated
CPT/HCPCS: 66984; V2632

== ENCOUNTER 2022-03-29 05:53 | Outpatient (CLI) | payer MEDICARE, OTHER | END 2022-03-30 09:00 | LOC: PREOP 05:53 | PROVIDERS: ATTEND Specialist | DX: Z01.818 Encounter for other preprocedural examination (principal) ==

== ENCOUNTER 2022-04-02 08:49 | Day surgery (SDC) | payer MEDICARE, OTHER ==
[~2022-04-02] VITALS: Ht 158 cm; Wt 54.5 kg
[2022-04-02] MEDS ORDERED: TIMOLOL 0.5% (CATARACTS) 0.3 ML BTL OU PRN (09:00)
[2022-04-02] MEDS ORDERED: MOXIFLOXACIN OPHTH SOLN 5 MG/ML 0.3 ML SYRINGE OP ONE (09:00)
[2022-04-02] MEDS ORDERED: POVIDONE (BETADINE) OPHTH SOLN 5% 30 ML OP ONE (09:00)
[2022-04-02] MEDS: TETRACAINE 0.5% OPHTH SOLN 4 ML BTL (SINGLE DOSE ONLY) OU PRN ×4 (09:01→09:21)
[2022-04-02] MEDS: PHENYLEPHRINE 10% OPHTH (NEO-SYN) 5 ML BTL OU SCH ×3 (09:08→09:21)
[2022-04-02] MEDS: TROPICAMIDE 1% OPH SOLN (MYDRIACYL) 15 ML BTL OP SCH ×3 (09:08→09:21)
[2022-04-02 09:10] VITALS: BP 113/62
[2022-04-02] MEDS ORDERED: MIDAZOLAM 2 MG/2 ML (VERSED) VIAL ONE (09:36)
--- NOTE | 2022-04-02 09:39 | Ophthalmologist Pre-Op Note ---
Pre-Operative Progress Note H&P Reviewed The H&P was reviewed, patient examined and no changes noted. Date H&P Reviewed: Apr 02, 2022 Time H&P Reviewed: 09:39 Pre-Op Dx Cataract, Left Eye WALTER PAYNE MD Apr 02, 2022 09:39
--- NOTE | 2022-04-02 10:01 | Ophthalmology Operative Report ---
Cataract removal/placement IOL PREOPERATIVE DIAGNOSIS: Cataract Left Eye POSTOPERATIVE DIAGNOSIS: Cataract Left Eye PROCEDURE: Cataract removal and placement of posterior chamber implant, left eye SURGEON: Regan Payne ANESTHESIA: Topical with sedation COMPLICATIONS: None ESTIMATED BLOOD LOSS: Minimal DESCRIPTION OF PROCEDURE: After proper informed consent was obtained, the patient, a 67 female, was taken to the Operating Room and the left eye was anesthetized with tetracaine. The left eye was then prepped and draped in the usual manner. A wire lid speculum was placed. A paracentesis was made at the left hand position. Preservative free lidocaine was injected into the anterior chamber followed by viscoelastic. A clear corneal incision was made in the temporal position. A capsulorrhexis was preformed and the central nuclear and cortical material were removed. The posterior capsule was polished and an Dmitriy 22.0 [id number] was placed into the capsular bag. The residual viscoelastic was aspirated and balanced saline solution was injected into the anterior chamber. Moxifloxacin was injected into the anterior chamber. The wound was checked and found to be water tight. The patient tolerated the procedure well without complications. REGAN PAYNE MD Apr 02, 2022 10:01
[2022-04-02 10:04] VITALS: BP 119/62
--- NOTE | 2022-04-02 12:05 | Anesthesia-General Post-Op ---
MAC Patient Condition Mental Status/LOC: Same as Preop Cardiovascular: Satisfactory Nausea/Vomiting: Absent Respiratory: Satisfactory Pain: Controlled Complications: Absent Post Op Complications Complications None Follow Up Care/Instructions Patient Instructions None needed. Anesthesiology Discharge Order Discharge Order Patient is doing well, no complaints, stable vital signs, no apparent adverse anesthesia problems. No complications reported per nursing. COLLEEN VOGEL CRNA Apr 02, 2022 12:05
== END 2022-04-02 10:05 | disposition home or self-care (01) ==
LOC: SDC 08:49
PROVIDERS: ATTEND Specialist
DX: H25.9 Unspecified age-related cataract (principal); F17.200 Nicotine dependence, unspecified, uncomplicated
CPT/HCPCS: 66984; V2632

== ENCOUNTER → 2022-04-09 | Outpatient (CLI) | payer MEDICARE, OTHER ==
[~2022-04-09] MED LIST changes: +GADOTERATE 0.5 MMOL/ML (CLARISCAN) 15 ML VIAL IV ONE
--- NOTE | 2022-04-09 11:20 | Diagnostic Imaging Report ---
PROCEDURE: MR imaging of the brain with and without contrast. TECHNIQUE: Multiplanar, multisequence MR imaging of the brain was performed with and without contrast. INDICATION: Fall. Dizziness. Numbness of the fingers. Memory loss. COMPARISON: 10/18/2012. FINDINGS: No acute ischemia, mass, or hemorrhage. The ventricles, cortical sulci, and basilar cisterns are symmetric and unremarkable. The sellar and suprasellar regions have a normal appearance. The brainstem and posterior fossa are unremarkable. The paranasal sinuses and mastoid air cells demonstrate normal signal characteristics. Bilateral lens implants are noted. The scalp and calvarium have a normal appearance. IMPRESSION: 1. No acute ischemia, mass, or hemorrhage. No abnormal enhancement. No focal signal abnormalities. Dictated by: Dictated on workstation # [id number]
--- NOTE | 2022-04-09 11:34 | Diagnostic Imaging Report ---
PROCEDURE: MR imaging cervical spine with and without contrast. TECHNIQUE: Multiplanar and multisequence MRI of the cervical spine was performed with and without contrast. INDICATION: Falls. Dizziness. Numbness of the fingers. COMPARISON: 10/18/2012. FINDINGS: No acute fracture or dislocation is seen in the cervical spine. No abnormal enhancement. There is normal slight reversal of the normal lordotic curvature of the cervical spine centered at the C5 level. The vertebral body heights are well maintained. Modic type I endplate degenerative changes are present at the C5-C6 and C6-C7 levels. No focal osseous lesions. The craniocervical junction is maintained. The cervical spinal cord demonstrates normal intrinsic signal. No abnormal collections are seen. Included brainstem and posterior fossa have normal appearance. Multilevel degenerative changes are seen in the cervical spine with posterior disc bulges and uncovertebral arthropathy. C2-C3: No significant spinal canal or foraminal stenosis. C3-C4: Posterior disc bulge and uncovertebral arthropathy results in mild to moderate spinal canal narrowing and mild to moderate right and moderate left foraminal stenosis. C4-C5: Posterior disc bulge and uncovertebral arthropathy results in mild spinal canal narrowing and moderate right and [id number]-fw-yotixeis left foraminal stenosis.. C5-C6: Disc osteophyte complex and uncovertebral arthropathy results in mild to moderate spinal canal narrowing and mild to moderate bilateral foraminal narrowing. C6-C7: Posterior disc bulge, uncovertebral arthropathy, and buckling of ligamentum flavum results in mild to moderate spinal canal narrowing and mild bilateral foraminal narrowing. C7-T1: No significant spinal canal or foraminal stenosis. Soft tissues of neck are unremarkable. IMPRESSION: 1. No acute fracture or dislocation of the cervical spine. 2. Multilevel degenerative changes in the cervical spine, greatest at C4-C5, C5-C6 and C6-C7. These have advanced since the prior exam. 3. Modic type I endplate degenerative changes at the C5-C6 and C6-C7 levels. Dictated by: Dictated on workstation # [id number]
== END ==
LOC: RAD 09:00
PROVIDERS: ATTEND Family Medicine
DX: M47.812 Spondylosis without myelopathy or radiculopathy, cervical region (principal); R42 Dizziness and giddiness; R20.0 Anesthesia of skin; R41.3 Other amnesia; Z91.81 History of falling
CPT/HCPCS: 70553; 72156

== ENCOUNTER 2022-05-15 11:07 | Emergency (ER) | payer MEDICARE, OTHER ==
[~2022-05-15] VITALS: Ht 158 cm; Wt 54.5 kg
[~2022-05-15 11:07] MED LIST changes: -GADOTERATE 0.5 MMOL/ML (CLARISCAN) 15 ML VIAL IV ONE
[2022-05-15] MEDS ORDERED: fentaNYL INJ 100 MCG/2 ML AMP IM ONE (12:30)
[2022-05-15] MEDS ORDERED: fentaNYL INJ 100 MCG/2 ML AMP IVP ONE (12:30)
--- NOTE | 2022-05-15 12:39 | ED Fall/Injury ---
General Chief Complaint: Trauma-Non Activation Stated Complaint: FALL - HEAD PAIN Nursing Triage Note: ARRIVED AMBULATORY TO TRIAGE ROOM WITH A C/O A FALL LAST NIGHT WHERE SHE THINKS SHE MAY HAVE HIT HER HEAD SHE FELL BACKWARDS ONTO HER BACK. PATIENT STATES SHE FELL FROM STANDING LANDING ON HER TAILBONE AND SHE DID NOT WANT TO COME IN LAST NIGHT. VERBALIZES SHE TOOKIBUPROFEN 400MG AT 0400, TYLENOL 1000 MG AT 1800 YESTERDAY, AND TOOK ONE OF HER OWN OXYCODONE AROUND MIDNIGHT FOR THE PAIN. PATIENT IS PRESCRIBED OXYCODONE FOR CHRONIC NECK AND BACK PAIN. PATIENT ALSO STATES SHE HAS NUMBNESS THAT COMES AND GOES FROM HER OPCIPITAL AREA OF HER RIGHT HEAD AROUND TO HER RIGHT CHEEK BONE. Source: patient Exam Limitations: no limitations History of Present Illness Date Seen by Provider: May 15, 2022 Time Seen by Provider: 12:07 Allergies and Home Medications Allergies Coded Allergies: methadone (Unverified Adverse Reaction, Severe, swelling, 05/15/22) Sulfa (Sulfonamide Antibiotics) (Unverified Adverse Reaction, Mild, hives, 05/15/22) Patient Home Medication List Carisoprodol (Carisoprodol) 350 Mg Tablet, 350 MG PO QID, (Reported) Entered as Reported by: MAJOR JOSÉ on 08/05/21 154 Fluoxetine HCl (Prozac) Unknown Strength Capsule, Unknown Dose PO, (Reported) Entered as Reported by: KHOI MARTI on 03/15/22 1507 Gabapentin (Gabapentin) 400 Mg Capsule, 300 MG PO QID, (Reported) Entered as Reported by: MAJOR JOSÉ on 08/05/21 154 Metoprolol Succinate (Metoprolol Succinate) 25 Mg Tab.er.24h, 25 MG PO DAILY, (Reported) Entered as Reported by: JO ANN CHOE on 10/29/14 0930 Omeprazole (Omeprazole) 20 Mg Tablet.dr, 20 MG PO DAILY, (Reported) Entered as Reported by: MAJOR JOSÉ on 08/05/21 154 Oxycodone HCl (Oxycodone HCl) 20 Mg Tablet, 20 MG PO UD, (Reported) Entered as Reported by: KHOI MARTI on 03/15/22 1507 Past Zqmmwxy-Khqrxn-Friahc Hx Patient Social History Tobacco Use?: Yes Tobacco type used: Cigarettes Smoking Status: Current Everyday Smoker Use of E-Cig and/or Vaping dev: No Substance use?: No Alcohol Use?: No Pt feels they are or have been: No Immunizations Up To Date Influenza Vaccine Up-to-Date: Yes; Up-to-Date First/Initial COVID19 Vaccinat: 2020 Second COVID19 Vaccination Abhinav: 2020 Third COVID19 Vaccination Date: 2021 Seasonal Allergies Seasonal Allergies: No Past Medical History Surgeries: Yes (RIGHT NEPHRECTOMY, X3 BACK SURGERY, SINUS) Orthopedic Respiratory: No Cardiac: Yes High Cholesterol, Hypertension, Palpitations Neurological: Yes (HX RADICULOPATHY) Reproductive Disorders: No Genitourinary: No Gastrointestinal: Yes Gastroesophageal Reflux, Chronic Constipation Musculoskeletal: Yes Arthritis, Chronic Back Pain Endocrine: No HEENT: No Cancer: No Psychosocial: Yes Depression Integumentary: No Blood Disorders: No Family Medical History Heart Disease, Diabetes Physical Exam Vital Signs Vital Signs - First Documented 05/15/22 11:28 Temp 36.8 Pulse 61 Resp 18 B/P (MAP) 133/76 (95) Pulse Ox 99 O2 Delivery Room Air Capillary Refill : Less Than 3 Seconds Height, Weight, BMI Height: 5'2.00" Weight: 131lbs. oz. 59.879335lq; 21.00 BMI Method:Stated Progress/Results/Core Measures Results/Orders My Orders Orders - MONISHA BURNHAM MD Fentanyl Inj (Sublimaze Injection) (05/15/22 12:30) Ct Head/Cervical Spine Wo (05/15/22 12:24) Ct Lumbar Spine Wo (05/15/22 12:24) Medications Given in ED Current Medications Medications Dose Ordered Sig/Lukas Route Start Time Stop Time Status Last Admin Dose Admin Fentanyl Citrate 50 mcg ONCE ONCE IM 05/15/22 12:30 05/15/22 12:31 DC 05/15/22 12:34 50 MCG Vital Signs/I&O 05/15/22 11:28 Temp 36.8 Pulse 61 Resp 18 B/P (MAP) 133/76 (95) Pulse Ox 99 O2 Delivery Room Air Blood Pressure Mean: 95 Departure Impression Primary Impression: Concussion Qualified Codes: S06.0X0A - Concussion without loss of consciousness, initial encounter Additional Impressions: Fall on same level Qualified Codes: W18.30XA - Fall on same level, unspecified, initial encounter Neck pain Low back pain Qualified Codes: M54.50 - Low back pain, unspecified Disposition: 01 HOME, SELF-CARE Condition: Improved Departure-Patient Inst. Decision time for Depature: 13:13 Referrals: MERCEDES ALFARO MD (PCP/Family) Primary Care Physician Patient Instructions: Concussion, Adult ED Add. Discharge Instructions: You likely suffered a concussion when you fell causing some of your symptoms. Observe a very quiet lifestyle over the next few days to limit physical and mental stressors. Avoid any activity that would increase risk for head injury over the next couple of weeks. Stop any activity that worsens concussion symptoms and rest. Concussion symptoms include headache, nausea, dizziness, vision changes, irritability, and confusion. For pain you may continue your usual oxycodone. You may also take Tylenol (acetaminophen) up to 650 mg every 6 hours as needed and ibuprofen up to 400 mg every 6 hours as needed. Drink plenty of clear liquids to stay well-hydrated. Return to care if you have worsening symptoms despite following these instructions. Follow-up with your primary care provider next week for repeat evaluation and examination. All discharge instructions reviewed with patient and/or family. Voiced understanding. Scripts Ondansetron (Ondansetron Odt) 4 Mg Tab.rapdis 4 MG SL Q4H PRN for NAUSEA/VOMITING, #10 TAB Prov: MONISHA BURNHAM MD 05/15/22 MONISHA BURNHAM MD May 15, 2022 12:39
--- NOTE | 2022-05-15 13:01 | Diagnostic Imaging Report ---
PROCEDURE: CT head and CT cervical spine without contrast. TECHNIQUE: Multiple contiguous axial images were obtained through the brain and cervical spine without the use of intravenous contrast. Sagittal and coronal reformations through the cervical spine were then performed. Auto Exposure Controls were utilized during the CT exam to meet ALARA standards for radiation dose reduction. INDICATION: Fall. Head and neck pain. COMPARISON: 04/09/2022. 08/14/2015. FINDINGS: CT head: No large acute territorial ischemia, mass, or hemorrhage. No midline shift or mass effect. The ventricles, cortical sulci, and basilar cisterns are patent and unremarkable. The calvarium is intact. The visualized paranasal sinuses are clear. CT cervical spine: No acute fracture or dislocation is seen in the cervical spine. No focal osseous lesions. Vertebral body heights are well-maintained. There is right convexity curvature of the cervical spine. There is grade 1 retrolisthesis of C5 on C6. The craniocervical junction is well-maintained. Mild degenerative changes are seen in the cervical spine with disc osteophyte complexes and uncovertebral arthropathy. Soft tissues of the neck are unremarkable. Included lungs are clear. IMPRESSION: 1. No hemorrhage or focal intra-axial mass. No CT evidence of large acute territorial ischemia. 2. No acute fracture or dislocation in the cervical spine. Dictated by: Dictated on workstation # [id number]
--- NOTE | 2022-05-15 13:02 | Diagnostic Imaging Report ---
PROCEDURE: CT lumbar spine without contrast. TECHNIQUE: Multiple contiguous axial images were obtained through the lumbar spine without the use of intravenous contrast. Sagittal and coronal reformations were then performed. Auto Exposure Controls were utilized during the CT exam to meet ALARA standards for radiation dose reduction. INDICATION: Fall. Low back pain. COMPARISON: 03/18/2022. FINDINGS: No acute fracture or dislocation is seen in the lumbar spine. Posterior fusion changes are visualized at the L4-L5 level with bipedicle screws and fusion rods. No evidence of hardware fracture. No suspicious focal osseous lesions. There is partial osseous fusion across the L2-L3 level with near complete osseous fusion across the L3-L4 level. No evidence of acute spinal canal stenosis. No high density material is seen within spinal canal. The paraspinal soft tissues are unremarkable. IMPRESSION: 1. No acute fracture or dislocation in the lumbar spine. 2. Posterior fusion from L4 to L5. No hardware complication. Dictated by: Dictated on workstation # [id number]
[2022-05-15] MEDS ORDERED: ONDA4TAB11 SL (13:19)
[2022-05-15 13:30] VITALS: BP 118/59
== END 2022-05-15 13:28 | disposition home or self-care (01) ==
LOC: EDUNIT# 11:07 → ER 11:08
DX: S06.0X0A Concussion without loss of consciousness, initial encounter (principal); M54.2 Cervicalgia; M54.50 Low back pain, unspecified; G89.29 Other chronic pain; F17.210 Nicotine dependence, cigarettes, uncomplicated; Z79.891 Long term (current) use of opiate analgesic; W18.30XA Fall on same level, unspecified, initial encounter
CPT/HCPCS: 70450; 72125; 72131

== ENCOUNTER → 2022-10-29 | Outpatient (CLI) | payer MEDICARE, OTHER ==
[~2022-10-29] MED LIST changes: -GABA-490 PO; +GABA-491 PO; +ONDA4TAB11 SL
--- NOTE | 2022-10-29 22:12 | Diagnostic Imaging Report ---
INDICATION: Routine screening. COMPARISON: Prior mammograms from 06/02/2021 and 05/18/2017. EXAMINATION: 2D and 3D bilateral screening mammography was performed with CAD. The current study was also evaluated with a Computer Aided Detection (CAD) system. FINDINGS: Scattered fibroglandular densities are identified, bilaterally. The parenchymal pattern is stable. No mass or malignant-appearing microcalcification is seen. Axillae are unremarkable. IMPRESSION: No mammographic feature suspicious for malignancy is identified. ACR BI-RADS Category 1: Negative. Result letter will be mailed to the patient. Note: At least 10% of breast cancer is not imaged by mammography. Dictated by: Dictated on workstation # [id number]
== END ==
LOC: RAD 10:52
PROVIDERS: ATTEND Family Medicine
DX: Z12.31 Encounter for screening mammogram for malignant neoplasm of breast (principal)
CPT/HCPCS: 77063; 77067

== ENCOUNTER 2023-01-10 10:32 | Inpatient (IN) | payer MEDICARE, OTHER ==
[~2023-01-10] VITALS: Ht 158 cm; Wt 56.5 kg
[2023-01-10] VITALS (10 sets, daily range): BP systolic 77–118; BP diastolic 31–71
[2023-01-10] MEDS ORDERED: ACETAMINOPHEN 500 MG TABLET PO STA (10:38)
--- NOTE | 2023-01-10 10:43 | ED General ---
General Chief Complaint: Fever-Adult/Adol Stated Complaint: FEVER Source of Information: Patient, EMS Exam Limitations: No Limitations History of Present Illness Date Seen by Provider: Jan 10, 2023 Time Seen by Provider: 10:27 Initial Comments 67-year-old female arrives from home via ambulance for fever. States last took ibuprofen a couple of hours ago. She has had significant chills and fever at home. She has had a nonproductive cough as well. No chest pain but she does have some mild shortness of breath. She been told in the past that she may have COPD but does not have a formal diagnosis of COPD. She does still smoke. No known sick contacts. She took a COVID test yesterday which was reportedly negative. EMS reports that her initial oxygen saturation was in the low 80s but it was not a good reading. They did place her on oxygen during transport. On arrival her oxygen saturation is 93% on room air. All other systems reviewed and negative except documented per HPI. Voice recognition software was used to help create this chart Allergies and Home Medications Allergies Coded Allergies: methadone (Unverified Adverse Reaction, Severe, swelling, 05/15/22) Sulfa (Sulfonamide Antibiotics) (Unverified Adverse Reaction, Mild, hives, 05/15/22) Patient Home Medication List Home Medication List Reviewed: Yes Carisoprodol (Carisoprodol) 350 Mg Tablet, 350 MG PO QID, (Reported) Entered as Reported by: MAJOR JOSÉ on 08/05/21 154 Fluoxetine HCl (Prozac) Unknown Strength Capsule, Unknown Dose PO, (Reported) Entered as Reported by: KHOI MARTI on 03/15/22 1507 Gabapentin (Gabapentin) 400 Mg Capsule, 300 MG PO QID, (Reported) Entered as Reported by: MAJOR JOSÉ on 08/05/21 1547 Metoprolol Succinate (Metoprolol Succinate) 25 Mg Tab.er.24h, 25 MG PO DAILY, (Reported) Entered as Reported by: JO ANN CHOE on 10/29/14 0930 Omeprazole (Omeprazole) 20 Mg Tablet.dr, 20 MG PO DAILY, (Reported) Entered as Reported by: MAJOR JOSÉ on 08/05/21 154 Ondansetron (Ondansetron Odt) 4 Mg Tab.rapdis, 4 MG SL Q4H PRN for NAUSEA/VOMITING Prescribed by: MONISHA RICKETTS on 05/15/22 1319 Oxycodone HCl (Oxycodone HCl) 20 Mg Tablet, 20 MG PO UD, (Reported) Entered as Reported by: KHOI MARTI on 03/15/22 1507 Review of Systems Review of Systems Constitutional: see HPI Past Wtmmcjb-Dtendz-Faptnp Hx Patient Social History Tobacco Use?: Yes Tobacco type used: Cigarettes Use of E-Cig and/or Vaping dev: No Substance use?: No Alcohol Use?: No Immunizations Up To Date First/Initial COVID19 Vaccinat: 2020 Second COVID19 Vaccination Abhinav: 2020 Third COVID19 Vaccination Date: 2021 Seasonal Allergies Seasonal Allergies: No Past Medical History Surgeries: Yes (RIGHT NEPHRECTOMY, X3 BACK SURGERY, SINUS) Nephrectomy, Orthopedic Respiratory: No Cardiac: Yes High Cholesterol, Hypertension, Palpitations Neurological: Yes (HX RADICULOPATHY) Reproductive Disorders: No Genitourinary: No Gastrointestinal: Yes Gastroesophageal Reflux, Chronic Constipation Musculoskeletal: Yes Arthritis, Chronic Back Pain Endocrine: No HEENT: No Cancer: No Psychosocial: Yes Depression Integumentary: No Blood Disorders: No Family Medical History Heart Disease, Diabetes Physical Exam Vital Signs Vital Signs - First Documented 01/10/23 10:39 Temp 38.7 Pulse 93 B/P (MAP) 124/63 (83) Pulse Ox 93 O2 Delivery Room Air Capillary Refill : Height, Weight, BMI Height: 5'2.00" Weight: 131lbs. oz. 59.809684mg; 21.00 BMI Method:Stated General Appearance: No Apparent Distress, WD/WN HEENT: Normal ENT Inspection, Pharynx Normal Neck: Normal Inspection, Non Tender, Supple Respiratory: Chest Non Tender, No Accessory Muscle Use, No Respiratory Distress, Other (Wet sounding cough. Scattered expiratory wheezes bilateral) Cardiovascular: Regular Rate, Rhythm, No Murmur Gastrointestinal: Normal Bowel Sounds, No Organomegaly, Non Tender, Soft Extremity: Normal Capillary Refill, Non Tender, No Pedal Edema Neurologic/Psychiatric: Alert, Oriented x3, Normal Mood/Affect Skin: Normal Color, Warm/Dry Focused Exam Lactate Level 01/10/23 10:40: Lactic Acid Level 2.53*H Lactic Acid Level Laboratory Tests Test 01/10/23 10:40 Lactic Acid Level 2.53 MMOL/L (0.50-2.00) *H Progress/Results/Core Measures Suspected Sepsis SIRS Temperature: Pulse: Respiratory Rate: Laboratory Tests 01/10/23 10:40: White Blood Count 11.3H Blood Pressure / Mean: 01/10/23 10:40: Lactic Acid Level 2.53*H Laboratory Tests 01/10/23 10:40: Creatinine 0.98, Platelet Count 328, Total Bilirubin 0.4 Results/Orders Lab Results Laboratory Tests Test 01/10/23 10:40 01/10/23 10:45 01/10/23 11:27 Range/Units White Blood Count 11.3 H 4.3-11.0 10^3/uL Red Blood Count 3.95 3.80-5.11 10^6/uL Hemoglobin 12.4 11.5-16.0 g/dL Hematocrit 36 35-52 % Mean Corpuscular Volume 92 80-99 fL Mean Corpuscular Hemoglobin 31 25-34 pg Mean Corpuscular Hemoglobin Concent 34 32-36 g/dL Red Cell Distribution Width 14.2 10.0-14.5 % Platelet Count 328 130-400 10^3/uL Mean Platelet Volume 9.0 9.0-12.2 fL Immature Granulocyte % (Auto) 0 % Neutrophils (%) (Auto) 88 H 42-75 % Lymphocytes (%) (Auto) 8 L 12-44 % Monocytes (%) (Auto) 3 0-12 % Eosinophils (%) (Auto) 0 0-10 % Basophils (%) (Auto) 0 0-10 % Neutrophils # (Auto) 9.9 H 1.8-7.8 10^3/uL Lymphocytes # (Auto) 0.9 L 1.0-4.0 10^3/uL Monocytes # (Auto) 0.4 0.0-1.0 10^3/uL Eosinophils # (Auto) 0.1 0.0-0.3 10^3/uL Basophils # (Auto) 0.0 0.0-0.1 10^3/uL Immature Granulocyte # (Auto) 0.1 0.0-0.1 10^3/uL Neutrophils % (Manual) 84 % Lymphocytes % (Manual) 7 % Monocytes % (Manual) 5 % Band Neutrophils 4 % Blood Morphology Comment NORMAL Sodium Level 130 L 135-145 MMOL/L Potassium Level 4.5 3.6-5.0 MMOL/L Chloride Level 97 L 98-107 MMOL/L Carbon Dioxide Level 21 21-32 MMOL/L Anion Gap 12 5-14 MMOL/L Blood Urea Nitrogen 9 7-18 MG/DL Creatinine 0.98 0.60-1.30 MG/DL Estimat Glomerular Filtration Rate 63 BUN/Creatinine Ratio 9 Glucose Level 142 H 70-105 MG/DL Lactic Acid Level 2.53 *H 0.50-2.00 MMOL/L Calcium Level 8.8 8.5-10.1 MG/DL Corrected Calcium 8.8 8.5-10.1 MG/DL Total Bilirubin 0.4 0.1-1.0 MG/DL Aspartate Amino Transf (AST/SGOT) 20 5-34 U/L Alanine Aminotransferase (ALT/SGPT) 15 0-55 U/L Alkaline Phosphatase 86 40-136 U/L Total Protein 7.0 6.4-8.2 GM/DL Albumin 4.0 3.2-4.5 GM/DL Influenza Type A (RT-PCR) Not Detected Not Detecte Influenza Type B (RT-PCR) Not Detected Not Detecte SARS-CoV-2 RNA (RT-PCR) Not Detected Not Detecte Urine Color YELLOW Urine Clarity CLEAR Urine pH 7.0 5-9 Urine Specific Dixon 1.015 L 1.016-1.022 Urine Protein 1+ H NEGATIVE Urine Glucose (UA) NEGATIVE NEGATIVE Urine Ketones NEGATIVE NEGATIVE Urine Nitrite NEGATIVE NEGATIVE Urine Bilirubin NEGATIVE NEGATIVE Urine Urobilinogen 1.0 < = 1.0 MG/DL Urine Leukocyte Esterase NEGATIVE NEGATIVE Urine RBC (Auto) NEGATIVE NEGATIVE Urine RBC 0-2 /HPF Urine WBC NONE /HPF Urine Squamous Epithelial Cells RARE /HPF Urine Crystals NONE /LPF Urine Bacteria NEGATIVE /HPF Urine Casts NONE /LPF Urine Mucus SMALL H /LPF Urine Culture Indicated NO My Orders Orders - PARTHA LYNNE DO Cbc And Automated Diff (01/10/23 10:38) Comprehensive Metabolic Panel (01/10/23 10:38) Blood Culture (01/10/23 10:38) Chest 1 View, Ap/Pa Only (01/10/23 10:38) Acetaminophen Tablet (Acetaminophen Ta (01/10/23 10:38) Ed Iv/Invasive Line Start (01/10/23 10:38) Vital Signs Adult Sepsis Patie Q15M (01/10/23 10:38) Lactic Acid Analyzer (01/10/23 10:38) Ns Iv 500 Ml (Ns Iv 500 Ml) (01/10/23 10:45) Covid 19 Inhouse Test (01/10/23 10:38) Influenza A And B By Pcr (01/10/23 10:38) Ua Culture If Indicated (01/10/23 10:55) Manual Differential (01/10/23 10:40) Ceftriaxone Iv/Im (Ceftriaxone Iv/Im) (01/10/23 11:45) Azithromycin Injection (Azithromycin Inj (01/10/23 11:45) Ondansetron Injection (Ondansetron Inj (01/10/23 11:45) Medications Given in ED Current Medications Medications Dose Ordered Sig/Lukas Route Start Time Stop Time Status Last Admin Dose Admin Azithromycin 500 mg/Sodium Chloride 250 ml @ 250 mls/hr ONCE ONCE IV 01/10/23 11:45 01/10/23 12:44 01/10/23 12:09 250 MLS/HR Ceftriaxone Sodium 1000 mg/ Sodium Chloride 50 ml @ 100 mls/hr ONCE ONCE IV 01/10/23 11:45 01/10/23 12:14 DC 01/10/23 11:46 100 MLS/HR Ondansetron HCl 4 mg ONCE ONCE IVP 01/10/23 11:45 01/10/23 11:46 DC 01/10/23 11:46 4 MG Vital Signs/I&O 01/10/23 01/10/23 01/10/23 10:39 10:46 10:51 Temp 38.7 38.7 Pulse 93 B/P (MAP) 124/63 (83) Pulse Ox 93 O2 Delivery Room Air Room Air Capillary Refill : Critical Care Note Critical Care Total Time (minutes) 60 Departure Communication (Admissions) Pt is initially mildly hypoxic. Started on 2L via NC with improvement. Borderline hypotensive, 99/56 at time of admission. She has had 1L IVF. HR initially mid 90's, now in mid 80's. She has been given Zithromax and Rocephin for community-acquired pneumonia. Chest x-ray indicates bilateral infiltrates. I have inability reviewed the imaging. She has mild leukocytosis 11.8 with a left shift. Mild elevation in her lactic acid, 2.5. Will recheck after IV fluids. She does not meet criteria for severe sepsis, no indication for 30 cc/kg bolus at this time. I spoke with Dr. Garcia who accepts the patient in admission to cardiac stepdown unit. She plans to put in acute orders. Impression Primary Impression: CAP (community acquired pneumonia) Qualified Codes: J18.9 - Pneumonia, unspecified organism Additional Impression: Hypoxia Disposition: ADMITTED INPATIENT Condition: Stable Departure-Patient Inst. Referrals: MERCEDES ALFARO MD (PCP/Family) Primary Care Physician PARTHA LYNNE DO Jan 10, 2023 10:43
[2023-01-10] MEDS ORDERED: NS IV 500 ML 500 ML IV SCH (10:45)
[2023-01-10 10:52] LABS: BASOPHILS % (AUTO) 0 % (0-10); EOSINOPHILS # (AUTO) 0.1 10^3/uL (0.0-0.3); EOSINOPHILS % (AUTO) 0 % (0-10); HEMATOCRIT 36 % (35-52); HEMOGLOBIN 12.4 g/dL (11.5-16.0); LYMPHOCYTES # (AUTO) 0.9 10^3/uL (1.0-4.0); LYMPHOCYTES % (AUTO) 8 % (12-44); MEAN CORPUSCULAR HEMOGLOBIN 31 pg (25-34); MEAN CORPUSCULAR HGB CONC 34 g/dL (32-36); MEAN CORPUSCULAR VOLUME 92 fL (80-99); MONOCYTES # (AUTO) 0.4 10^3/uL (0.0-1.0); MONOCYTES % (AUTO) 3 % (0-12); NEUTROPHILS # (AUTO) 9.9 10^3/uL (1.8-7.8); NEUTROPHILS % (AUTO) 88 % (42-75); PLATELET COUNT 328 10^3/uL (130-400); WHITE BLOOD COUNT 11.3 10^3/uL (4.3-11.0)
[2023-01-10 11:10] LABS: POTASSIUM 4.5 MMOL/L (3.6-5.0)
[2023-01-10 11:11] LABS: CALCIUM 8.8 MG/DL (8.5-10.1)
[2023-01-10 11:14] LABS: BILIRUBIN,TOTAL 0.4 MG/DL (0.1-1.0)
[2023-01-10 11:16] LABS: CREATININE SERUM 0.98 MG/DL (0.60-1.30)
--- NOTE | 2023-01-10 11:30 | Diagnostic Imaging Report ---
CLINICAL INDICATION: Patient with cough and fever. EXAM: Portable chest x-ray, upright view. COMPARISON: Chest x-ray dated 09/22/2019. FINDINGS: Lungs/pleura: There is interval development of a subtle infiltrate involving the bilateral perihilar regions. There is no pneumothorax. There is no pleural effusion. Mediastinum: Unremarkable. Pulmonary vasculature: Unremarkable. Heart: Unremarkable. Bones/extrathoracic soft tissue: There are degenerative spurs involving the thoracic spine. IMPRESSION: There is interval development of mild infiltrates involving the bilateral perihilar regions concerning for pneumonia. Dictated by: Dictated on workstation # [id number]
[2023-01-10] MEDS ORDERED: cefTRIAXone IV/IM 1,000 MG in NS (IVPB) 50 ML 50 ML IV ONE (11:45)
[2023-01-10] MEDS ORDERED: ONDANSETRON INJECTION 4 MG/2 ML (SDV) IVP ONE (11:45)
[2023-01-10] MEDS ORDERED: AZITHROMYCIN INJECTION 500 MG in NS (IVPB) 250 ML 250 ML IV ONE ×2 (11:45→14:00)
[2023-01-10 11:48] LABS: BAND NEUTROPHILS 4 %; LYMPHOCYTES % (MANUAL) 7 %; MONOCYTES % (MANUAL) 5 %; NEUTROPHILS % (MANUAL) 84 %
[2023-01-10 11:49] LABS: RBC MORPH NORMAL
[2023-01-10 11:49] LABS: CLARITY,URINE CLEAR; COLOR,URINE YELLOW
[2023-01-10 11:50] LABS: BILIRUBIN,URINE NEGATIVE (NEGATIVE); GLUCOSE, URINE (UA) NEGATIVE (NEGATIVE); KETONES,URINE NEGATIVE (NEGATIVE); LEUKOCYTE ESTERASE ,URINE NEGATIVE (NEGATIVE); NITRITE,URINE NEGATIVE (NEGATIVE); PROTEIN,URINE 1+ (NEGATIVE)
[2023-01-10 11:51] LABS: BACTERIA,URINE NEGATIVE /HPF; RBC,URINE 0-2 /HPF; SQUAMOUS EPITHELIAL CELL,UR RARE /HPF
--- NOTE | 2023-01-10 12:46 | History & Physical ---
History of Present Illness HPI/Chief Complaint Chief complaint: Acute hypoxic respiratory failure HPI: This is a 67-year-old female with Dr. Jeronimo who has a past medical history of COPD on trilogy and continued smoking who presented to the ER with shortness of breath and O2 sat of 85%. Patient was placed on 2 L of oxygen which helped. Wheezing continues so we will initiate IV steroids and nebulizer treatments and inhaled corticosteroids. Pneumonia was noted on chest x-ray bilateral. IV antibiotics initiated. Due to mild hypotension we will initiate cardiac stepdown location of care. Source: patient, family Exam Limitations: no limitations Date Seen 01/10/23 Time Seen by a Provider: 13:00 Attending Physician Nancy Jeronimo MD PCP Admitting Physician: Attending Physician: Referring Physician Date of Admission Home Medications & Allergies Home Medications Reviewed patient Home Medication Reconciliation performed by pharmacy medication reconciliations health information technician and/or nursing. Patients Allergies have been reviewed. Allergies Allergies Coded Allergies methadone (Unverified Adverse Reaction, Severe, swelling, 05/15/22) Sulfa (Sulfonamide Antibiotics) (Unverified Adverse Reaction, Mild, hives, 05/15/22) Past Olmctxv-Xtmccr-Pipugu Hx Past Med/Social Hx: Reviewed Nursing Past Med/Soc Hx, Reviewed and Corrections made Patient Social History Marrital Status: Employed/Student: retired Alcohol Use: Denies Use Smoking Status: Current Everyday Smoker Type Used: Cigarettes 2nd Hand Smoke Exposure: No Recent Hopitalizations: No Immunizations Up To Date Date of Influenza Vaccine: Nov 18, 2020 Seasonal Allergies Seasonal Allergies: No Past Medical History Surgeries: Nephrectomy, Orthopedic Respiratory: COPD Cardiac: High Cholesterol, Hypertension, Palpitations Reproductive: No Gastrointestinal: Gastroesophageal Reflux, Chronic Constipation Musculoskeletal: Arthritis, Chronic Back Pain Psychosocial: Depression History of Blood Disorders: No Family History Heart Disease, Diabetes Review of Systems Constitutional: see HPI, dizziness, malaise, weakness EENTM: no symptoms reported Respiratory: dyspnea on exertion, short of breath, wheezing Cardiovascular: no symptoms reported Gastrointestinal: no symptoms reported Genitourinary: no symptoms reported Musculoskeletal: back pain Skin: no symptoms reported Psychiatric/Neurological: Anxiety, Depressed All Other Systems Reviewed Negative Unless Noted: Yes Physical Exam Physical Exam Vital Signs Vital Signs - First Documented 01/10/23 01/10/23 01/10/23 10:39 13:34 17:33 Temp 38.7 Pulse 93 Resp 18 B/P (MAP) 124/63 (83) Pulse Ox 93 O2 Delivery Room Air O2 Flow Rate 2.00 Capillary Refill : Less Than 3 Seconds Height, Weight, BMI Height: 5'2.00" Weight: 131lbs. oz. 59.747467cn; 23.00 BMI Method:Stated General Appearance: No Apparent Distress, WD/WN, Chronically ill, Thin HEENT: Normal ENT Inspection, Pharynx Normal Neck: Normal Inspection, Non Tender, Supple Respiratory: Chest Non Tender, No Accessory Muscle Use, No Respiratory Distress, Other (Wet sounding cough. Scattered expiratory wheezes bilateral) Cardiovascular: Regular Rate, Rhythm, No Murmur Gastrointestinal: Normal Bowel Sounds, No Organomegaly, Non Tender, Soft Extremity: Normal Capillary Refill, Non Tender, No Pedal Edema Neurologic/Psychiatric: Alert, Oriented x3, Normal Mood/Affect Skin: Normal Color, Warm/Dry Results Results/Procedures Labs Laboratory Tests 01/10/23 10:40 Patient resulted labs reviewed. Assessment/Plan Admission Diagnosis Assessment: Acute on chronic respiratory failure with hypoxia Bilateral pneumonia community-acquired Current smoker Exacerbation of COPD with wheezing placed on IV steroids and inhaled corticosteroid Neuropathy Anxiety Depression Mild hypotension History of hypertension Plan: Cardiac stepdown Monitor hypotension IV antibiotics Decadron ICS Monitor closely Admission Status: Inpatient Order (span 2 midnights) Reason for Inpatient Admission: Acute hypoxic respiratory failure ASHLEY BAUTISTA DO Jan 10, 2023 12:46
[2023-01-10] MEDS ORDERED: ONDANSETRON 4 MG ORAL DISSOLVE TABLET PO PRN (14:00)
[2023-01-10] MEDS ORDERED: ONDANSETRON INJECTION 4 MG/2 ML (SDV) IV PRN (14:00)
[2023-01-10] MEDS ORDERED: BISACODYL 10 MG SUPPOSITORY PR PRN (14:00)
[2023-01-10] MEDS ORDERED: oxyCODONE IMMEDIATE RELEASE 5 MG TABLET PO PRN (14:00)
[2023-01-10] MEDS ORDERED: hydrALAZINE INJECTION 20 MG/ML VIAL IV PRN (14:00)
[2023-01-10] MEDS ORDERED: CALCIUM CARBONATE 500 MG CHEW TABLET PO PRN (14:00)
[2023-01-10] MEDS ORDERED: HYDROmorphone INJECTION 2 MG/ML VIAL IV PRN (14:00)
[2023-01-10] MEDS ORDERED: MELATONIN 3 MG TABLET PO PRN (14:00)
[2023-01-10] MEDS ORDERED: ANTACID SUSPENSION 30 ML UDC PO PRN (14:00)
[2023-01-10] MEDS ORDERED: diphenhydrAMINE 25 MG TABLET PO PRN (14:00)
[2023-01-10] MEDS ORDERED: ACETAMINOPHEN 325 MG TABLET PO PRN (14:00)
[2023-01-10] MEDS ORDERED: MILK OF MAGNESIA 400 MG/5 ML 30 ML UDC PO PRN (14:00)
[2023-01-10] MEDS ORDERED: diphenhydrAMINE INJ 50 MG/ML VIAL IVP PRN (14:00)
[2023-01-10] MEDS ORDERED: BENZONATATE 100 MG CAPSULE PO PRN (14:00)
[2023-01-10] MEDS ORDERED: LACTULOSE SYRUP 10GM/15ML 30ML UDC PO PRN (14:00)
[2023-01-10] MEDS ORDERED: GABA-486 PO ×2 (14:29)
[2023-01-10] MEDS ORDERED: OXYC20TA3 PO (14:29)
[2023-01-10] MEDS: NICOTINE 21 MG PATCH TD SCH (14:29)
[2023-01-10] MEDS: LORazepam 0.5 MG TABLET PO PRN ×2 (14:29→21:35)
[2023-01-10] MEDS ORDERED: FLUO40CA PO (14:29)
[2023-01-10] MEDS ORDERED: FLUO20CA48 PO (14:29)
[2023-01-10] MEDS ORDERED: LORATADINE 10 MG TABLET PO NR (14:30)
[2023-01-10] MEDS: ENOXAPARIN 40 MG/0.4 ML SYRINGE SC SCH (14:30)
[2023-01-10] MEDS ORDERED: LORA-404 PO (14:30)
[2023-01-10] MEDS ORDERED: guaiFENesin 600 MG TABLET PO NR (14:30)
[2023-01-10] MEDS ORDERED: DIPH25CA79 PO (14:34)
[2023-01-10] MEDS ORDERED: MELA10TA2 PO (14:34)
[2023-01-10] MEDS ORDERED: SENN-36 PO (14:34)
[2023-01-10] MEDS ORDERED: IBUP-2473 PO (14:34)
[2023-01-10] MEDS ORDERED: ACET-2267 PO (14:34)
[2023-01-10] MEDS: FLUTICASONE/VILANTEROL 200/25 MCG (14 DOSES) IH SCH (15:25)
[2023-01-10] MEDS ORDERED: RT-Ipratropium/Albuterol NEB 3 ML VIAL INH PRN (15:30)
[2023-01-10] MEDS: NS IV 1000 ML 1,000 ML IV SCH (16:20)
[2023-01-10] MEDS: MONTELUKAST 10 MG TABLET PO SCH (19:26)
[2023-01-10] MEDS: dexAMETHasone INJ 4 MG/ML SDV IV SCH (19:26)
[2023-01-10] MEDS: DOCUSATE SODIUM 100 MG CAPSULE PO SCH (19:28)
[2023-01-10] MEDS: SENNOSIDES 8.6 MG TABLET PO SCH (19:29)
[2023-01-10] MEDS: RT-Ipratropium/Albuterol NEB 3 ML VIAL INH SCH (21:04)
[2023-01-10] MEDS: guaiFENesin 600 MG TABLET PO SCH (21:34)
[2023-01-11] VITALS (8 sets, daily range): BP systolic 90–126; BP diastolic 38–79
[2023-01-11] MEDS: NS IV 1000 ML 1,000 ML IV SCH ×3 (01:12→23:32)
[2023-01-11] MEDS: RT-Ipratropium/Albuterol NEB 3 ML VIAL INH SCH ×4 (02:48→22:02)
[2023-01-11 04:47] LABS: BASOPHILS % (AUTO) 0 % (0-10); EOSINOPHILS % (AUTO) 0 % (0-10); HEMATOCRIT 32 % (35-52); HEMOGLOBIN 10.4 g/dL (11.5-16.0); LYMPHOCYTES # (AUTO) 0.8 10^3/uL (1.0-4.0); LYMPHOCYTES % (AUTO) 10 % (12-44); MEAN CORPUSCULAR HEMOGLOBIN 31 pg (25-34); MEAN CORPUSCULAR HGB CONC 33 g/dL (32-36); MEAN CORPUSCULAR VOLUME 94 fL (80-99); MEAN PLATELET VOLUME 9.5 fL (9.0-12.2); MONOCYTES # (AUTO) 0.2 10^3/uL (0.0-1.0); MONOCYTES % (AUTO) 3 % (0-12); NEUTROPHILS # (AUTO) 6.6 10^3/uL (1.8-7.8); NEUTROPHILS % (AUTO) 86 % (42-75); PLATELET COUNT 282 10^3/uL (130-400); WHITE BLOOD COUNT 7.7 10^3/uL (4.3-11.0)
[2023-01-11] MEDS ORDERED: SENNOSIDES 8.6 MG TABLET PO PRN (05:00)
[2023-01-11] MEDS ORDERED: ACETAMINOPHEN 500 MG TABLET PO PRN (05:00)
[2023-01-11] MEDS ORDERED: IBUPROFEN 200 MG TABLET PO PRN (05:00)
[2023-01-11] MEDS ORDERED: LORazepam 0.5 MG TABLET PO PRN (05:00)
[2023-01-11 05:17] LABS: ALBUMIN 3.4 GM/DL (3.2-4.5); BILIRUBIN,TOTAL 0.3 MG/DL (0.1-1.0); CALCIUM 8.4 MG/DL (8.5-10.1); CREATININE SERUM 0.81 MG/DL (0.60-1.30); POTASSIUM 4.3 MMOL/L (3.6-5.0); TOTAL PROTEIN 5.7 GM/DL (6.4-8.2)
[2023-01-11] MEDS ORDERED: diphenhydrAMINE 25 MG TABLET PO PRN (06:00)
[2023-01-11] MEDS: PANTOPRAZOLE 20 MG TABLET PO SCH (06:03)
[2023-01-11] MEDS: FLUTICASONE/VILANTEROL 200/25 MCG (14 DOSES) IH SCH (07:45)
[2023-01-11] MEDS: NICOTINE PATCH REMOVAL TP SCH (08:13)
[2023-01-11] MEDS: FLUoxetine 20 MG CAPSULE PO SCH (08:14)
[2023-01-11] MEDS: dexAMETHasone INJ 4 MG/ML SDV IV SCH ×2 (08:14→20:49)
[2023-01-11] MEDS: GABAPENTIN 100 MG CAPSULE PO SCH (08:14)
[2023-01-11] MEDS: SENNOSIDES 8.6 MG TABLET PO SCH ×2 (08:14→20:52)
[2023-01-11] MEDS: CARISOPRODOL 350 MG TABLET PO SCH ×4 (08:14→20:49)
[2023-01-11] MEDS: DOCUSATE SODIUM 100 MG CAPSULE PO SCH ×2 (08:14→20:52)
[2023-01-11] MEDS: guaiFENesin 600 MG TABLET PO SCH ×2 (08:14→20:49)
[2023-01-11] MEDS: LORATADINE 10 MG TABLET PO SCH (08:14)
[2023-01-11] MEDS: AZITHROMYCIN 250 MG TABLET PO SCH (08:14)
[2023-01-11] MEDS: NICOTINE 21 MG PATCH TD SCH (08:15)
[2023-01-11] MEDS: LORazepam 0.5 MG TABLET PO PRN (08:21)
[2023-01-11] MEDS ORDERED: oxyCODONE IMMEDIATE RELEASE 5 MG TABLET PO PRN (08:30)
[2023-01-11] MEDS ORDERED: FLUoxetine 20 MG CAPSULE PO SCH (09:00)
--- NOTE | 2023-01-11 09:34 | Diagnostic Imaging Report ---
CHEST 1 VIEW, AP/PA ONLY INDICATION: . Pneumonia COMPARISON: Chest radiograph 01/10/2023. FINDINGS: Lungs: Normal lung volume. Slightly increased airspace opacity in the left lower lobe Pleura: No pleural effusion or pneumothorax. Heart and Mediastinum: Cardiomegaly pulmonary vascular congestion. Osseous Structures and Soft Tissues: No acute osseous abnormality. Normal soft tissues. IMPRESSION: Slightly increased airspace opacity within the left lower lobe. Cardiomegaly with pulmonary vascular congestion. Dictated by: Dictated on workstation # [id number]
[2023-01-11] MEDS: cefTRIAXone IV/IM 1,000 MG in NS (IVPB) 50 ML 50 ML IV SCH (12:08)
[2023-01-11] MEDS: PROMETHAZINE 25 MG TABLET PO PRN (12:19)
--- NOTE | 2023-01-11 13:26 | Progress Note ---
DHIRAJ ESPINOZA 01/11/23 1326: Subjective Date Seen by a Provider: Jan 11, 2023 Time Seen by a Provider: 11:00 Subjective/Events-last exam Roselia is a 67 yo F with a PMH of COPD, tobacco dependence, HTN and HLD amongst other chronic health conditions who was admitted yesterday for acute hypoxic res piratory failure due to bilateral PNA and COPD exacerbation. She was admitted to cardiac stepdown due to mild hypotension observed in the ED. This morning, the patient is continuing to have shallow breathing and dry cough, both of which are slightly improved since admission. She does not use oxygen at home. She denies chest pain or pleuritic pain. She complaints of nausea, which she states is chronic in nature and treated with Promethazine as it is refractory to Zofran. Her nausea is limiting her appetite and she has not eaten since admission. No other complaints at this time. Review of Systems General: Fatigue Pulmonary: Dyspnea, Cough; No Pleuritic Chest Pain Cardiovascular: No: Chest Pain, Lt Headedness Gastrointestinal: Nausea Focused Exam Lactate Level 01/10/23 10:40: Lactic Acid Level 2.53*H 01/10/23 14:47: Lactic Acid Level 0.77 Objective Exam Last Set of Vital Signs Vital Signs Date Time Temp Pulse Resp B/P (MAP) Pulse Ox O2 Delivery O2 Flow Rate FiO2 01/11/23 11:59 36.7 68 16 118/76 (90) 95 Room Air 01/11/23 08:00 0.00 Capillary Refill : Less Than 3 Seconds I&O Intake and Output 01/10/23 23:59 Intake Total 1200 ml Output Total 900 ml Balance 300 ml Intake Oral 400 ml IV Total 800 ml Output Urine Total 900 ml Daily Weight Change No General: Alert, Oriented X3 Lungs: Other (mildly diminished breath sounds throughout) Heart: Regular Rate Abdomen: Normal Bowel Sounds Results Lab Laboratory Tests 01/10/23 14:47: Lactic Acid Level 0.77 01/11/23 04:21: White Blood Count 7.7, Red Blood Count 3.40L, Hemoglobin 10.4L, Hematocrit 32L, Mean Corpuscular Volume 94, Mean Corpuscular Hemoglobin 31, Mean Corpuscular Hemoglobin Concent 33, Red Cell Distribution Width 14.4, Platelet Count 282, Mean Platelet Volume 9.5, Immature Granulocyte % (Auto) 0, Neutrophils (%) (Auto) 86H, Lymphocytes (%) (Auto) 10L, Monocytes (%) (Auto) 3, Eosinophils (%) (Auto) 0, Basophils (%) (Auto) 0, Neutrophils # (Auto) 6.6, Lymphocytes # (Auto) 0.8L, Monocytes # (Auto) 0.2, Eosinophils # (Auto) 0.0, Basophils # (Auto) 0.0, Immature Granulocyte # (Auto) 0.0, Sodium Level 134L, Potassium Level 4.3, Chloride Level 105, Carbon Dioxide Level 20L, Anion Gap 9, Blood Urea Nitrogen 9, Creatinine 0.81, Estimat Glomerular Filtration Rate 79, BUN/Creatinine Ratio 11, Glucose Level 113H, Calcium Level 8.4L, Corrected Calcium 8.9, Total Bilirubin 0.3, Aspartate Amino Transf (AST/SGOT) 24, Alanine Aminotransferase (ALT/SGPT) 20, Alkaline Phosphatase 74, Total Protein 5.7L, Albumin 3.4 Assessment/Plan Assessment/Plan Assess & Plan/Chief Complaint Acute on chronic respiratory failure Bilateral pneumonia COPD exacerbation Tobacco dependence - Patient not oxygen dependent at home - Still requiring 2L of oxygen at night; saturating mid-90s on RA during interview - CXR today showing slightly increased opacity in the LLL compared to 01/10 CXR - Continue azithromycin and ceftriaxone (EOT 01/14) - Continue Decadron IV (EOT 01/14) - Continue fluticasone-vilanterol INH - Continue albuterol-ipratropium INH - Continue guaifenesin for symptom relief - Wean oxygen as tolerated Nausea Poor appetite - Nausea is chronic and treated with promethazine - Discontinuing IV fluids to improve oral intake - Starting promethazine Hypotension (mild) - resolved Chronic: Neuropathic pain - gabapentin Chronic pain - oxycodone 20 TID Tobacco dependence - nicotine patch Anxiety - Fluoxetine, Lorazepam Disposition: Move to med-surg DVT prophylaxis: Enoxaparin Diet: Regular DANICA BAUTISTA DO 01/12/23 0440: Subjective Subjective/Events-last exam Patient much improved Breathing better Reviewed meds and labs Will move down to fourth floor Objective Exam General: Alert, Oriented X3, Cooperative, No Acute Distress Lungs: Other (mildly diminished breath sounds throughout) Heart: Regular Rate Psych/Mental Status: Mental Status NL, Mood NL Assessment/Plan Assessment/Plan Assess & Plan/Chief Complaint Moved down to fourth floor Supervisory-Addendum Brief Verification & Attestation Participated in pt care: history, MDM, physical Personally performed: exam, history, MDM, supervision of care Care discussed with: Medical Student Procedures: n/a Results interpretation: Verified all documentation Verification and Attestation of Medical Student E/M Service A medical student performed and documented this service in my presence. I reviewed and verified all information documented by the medical student and made modifications to such information, when appropriate. I personally performed the physical exam and medical decision making. Danica Bautista, Jan 12, 2023,04:40 DHIRAJ ESPINOZA Jan 11, 2023 13:26 DANICA BAUTISTA DO Jan 12, 2023 04:40
[2023-01-11] MEDS: ENOXAPARIN 40 MG/0.4 ML SYRINGE SC SCH (16:57)
[2023-01-11] MEDS: MONTELUKAST 10 MG TABLET PO SCH (20:50)
[2023-01-11] MEDS: MELATONIN 10 MG TABLET PO SCH (20:50)
[2023-01-11] MEDS: GABAPENTIN 300 MG CAPSULE PO SCH (20:50)
[2023-01-12] MEDS: RT-Ipratropium/Albuterol NEB 3 ML VIAL INH SCH ×4 (02:50→20:54)
[2023-01-12 03:15] VITALS: BP 131/66
[2023-01-12 04:47] LABS: BASOPHILS % (AUTO) 0 % (0-10); EOSINOPHILS % (AUTO) 0 % (0-10); HEMATOCRIT 30 % (35-52); HEMOGLOBIN 9.8 g/dL (11.5-16.0); LYMPHOCYTES # (AUTO) 0.9 10^3/uL (1.0-4.0); LYMPHOCYTES % (AUTO) 11 % (12-44); MEAN CORPUSCULAR HEMOGLOBIN 31 pg (25-34); MEAN CORPUSCULAR HGB CONC 33 g/dL (32-36); MEAN CORPUSCULAR VOLUME 93 fL (80-99); MEAN PLATELET VOLUME 9.6 fL (9.0-12.2); MONOCYTES # (AUTO) 0.3 10^3/uL (0.0-1.0); MONOCYTES % (AUTO) 3 % (0-12); NEUTROPHILS # (AUTO) 6.7 10^3/uL (1.8-7.8); NEUTROPHILS % (AUTO) 85 % (42-75); PLATELET COUNT 277 10^3/uL (130-400); WHITE BLOOD COUNT 7.9 10^3/uL (4.3-11.0)
[2023-01-12] MEDS: PANTOPRAZOLE 20 MG TABLET PO SCH (05:02)
[2023-01-12 05:17] LABS: ALBUMIN 3.3 GM/DL (3.2-4.5); BILIRUBIN,TOTAL 0.2 MG/DL (0.1-1.0); CALCIUM 8.6 MG/DL (8.5-10.1); CREATININE SERUM 0.81 MG/DL (0.60-1.30); POTASSIUM 4.3 MMOL/L (3.6-5.0); TOTAL PROTEIN 5.9 GM/DL (6.4-8.2)
[2023-01-12 07:35] VITALS: BP 146/65
[2023-01-12] MEDS: LORazepam 0.5 MG TABLET PO PRN (07:38)
[2023-01-12] MEDS: NS IV 1000 ML 1,000 ML IV SCH (07:38)
[2023-01-12] MEDS: dexAMETHasone INJ 4 MG/ML SDV IV SCH ×2 (08:50→19:58)
[2023-01-12] MEDS: AZITHROMYCIN 250 MG TABLET PO SCH (08:50)
[2023-01-12] MEDS: CARISOPRODOL 350 MG TABLET PO SCH ×4 (08:50→19:58)
[2023-01-12] MEDS: NICOTINE 21 MG PATCH TD SCH (08:50)
[2023-01-12] MEDS: GABAPENTIN 100 MG CAPSULE PO SCH (08:50)
[2023-01-12] MEDS: LORATADINE 10 MG TABLET PO SCH (08:50)
[2023-01-12] MEDS: FLUoxetine 20 MG CAPSULE PO SCH (08:51)
[2023-01-12] MEDS: SENNOSIDES 8.6 MG TABLET PO SCH ×2 (08:51→19:59)
[2023-01-12] MEDS: DOCUSATE SODIUM 100 MG CAPSULE PO SCH ×2 (08:51→19:58)
[2023-01-12] MEDS: guaiFENesin 600 MG TABLET PO SCH ×2 (08:51→19:58)
[2023-01-12] MEDS: NICOTINE PATCH REMOVAL TP SCH (08:51)
[2023-01-12] MEDS: FLUTICASONE/VILANTEROL 200/25 MCG (14 DOSES) IH SCH (09:59)
[2023-01-12 11:15] VITALS: BP 119/67
[2023-01-12] MEDS: cefTRIAXone IV/IM 1,000 MG in NS (IVPB) 50 ML 50 ML IV SCH (11:56)
[2023-01-12] MEDS: PROMETHAZINE 25 MG TABLET PO PRN (14:12)
[2023-01-12] MEDS: ENOXAPARIN 40 MG/0.4 ML SYRINGE SC SCH (14:13)
--- NOTE | 2023-01-12 14:26 | Progress Note ---
DHIRAJ ESPINOZA 01/12/23 1426: Subjective Date Seen by a Provider: Jan 12, 2023 Time Seen by a Provider: 11:00 Subjective/Events-last exam Hospital course: Roselia is a 67 yo F with a PMH of non-oxygen dependent COPD, tobacco dependence, HTN and HLD amongst other chronic health conditions who was admitted on 01/10 for acute hypoxic respiratory failure due to bilateral PNA and COPD exacerbation. Due to mild hypotension noted in the ED, she was initially placed in cardiac stepdown. Treatment with azithromycin, ceftriaxone, IV decadron and i nhalers was initiated. She was transitioned to med-tele on Day 2 of hospitalization per stable blood pressure. Repeat CXR this day showed worsening left lower lobe infiltrate. The patient has had poor oral intake she attributes to chronic nausea; her home promethazine was restarted. Today, the patient reports slightly improved dyspnea and cough. She continues to require 2L of supplemental oxygen by nasal canula 1/3 of the time. She reports persistent despite reinitiation of home promethazine yesterday; she believes she has not been receiving her doses. Her appetite remains because of nausea. Review of Systems General: Fatigue, Appetite (poor) Pulmonary: Dyspnea, Cough; No Pleuritic Chest Pain Cardiovascular: No: Chest Pain Gastrointestinal: Nausea Focused Exam Lactate Level 01/10/23 10:40: Lactic Acid Level 2.53*H 01/10/23 14:47: Lactic Acid Level 0.77 Objective Exam Last Set of Vital Signs Vital Signs Date Time Temp Pulse Resp B/P (MAP) Pulse Ox O2 Delivery O2 Flow Rate FiO2 01/12/23 11:15 37.0 80 18 119/67 (84) 97 Nasal Cannula 2.00 Capillary Refill : Less Than 3 Seconds I&O Intake and Output 01/11/23 23:59 Intake Total 3290 ml Output Total 1200 ml Balance 2090 ml Intake Oral 2290 ml IV Total 1000 ml Output Urine Total 1200 ml # Voids 9 General: Alert, Oriented X3 Lungs: Other (scattered wheezes throughout) Heart: Regular Rate Abdomen: Normal Bowel Sounds Psych/Mental Status: Mental Status NL Results Lab Laboratory Tests 01/12/23 03:55: White Blood Count 7.9, Red Blood Count 3.16L, Hemoglobin 9.8L, Hematocrit 30L, Mean Corpuscular Volume 93, Mean Corpuscular Hemoglobin 31, Mean Corpuscular Hemoglobin Concent 33, Red Cell Distribution Width 14.5, Platelet Count 277, Mean Platelet Volume 9.6, Immature Granulocyte % (Auto) 1, Neutrophils (%) (Auto) 85H, Lymphocytes (%) (Auto) 11L, Monocytes (%) (Auto) 3, Eosinophils (%) (Auto) 0, Basophils (%) (Auto) 0, Neutrophils # (Auto) 6.7, Lymphocytes # (Auto) 0.9L, Monocytes # (Auto) 0.3, Eosinophils # (Auto) 0.0, Basophils # (Auto) 0.0, Immature Granulocyte # (Auto) 0.1, Sodium Level 134L, Potassium Level 4.3, Chloride Level 104, Carbon Dioxide Level 19L, Anion Gap 11, Blood Urea Nitrogen 8, Creatinine 0.81, Estimat Glomerular Filtration Rate 79, BUN/Creatinine Ratio 10, Glucose Level 140H, Calcium Level 8.6, Corrected Calcium 9.2, Total Bilirubin 0.2, Aspartate Amino Transf (AST/SGOT) 14, Alanine Aminotransferase (ALT/SGPT) 14, Alkaline Phosphatase 71, Total Protein 5.9L, Albumin 3.3 Microbiology 01/10/23 Blood Culture - Preliminary, Resulted Assessment/Plan Assessment/Plan Assess & Plan/Chief Complaint Acute on chronic respiratory failure - improving Bilateral pneumonia COPD exacerbation Tobacco dependence - Patient not oxygen dependent at home - Requiring 2L of supplemental oxygen roughly 50% of the time - Repeat CXR on 01/10 today showing slightly increased opacity in the LLL - Continue azithromycin and ceftriaxone (EOT 01/14) - Continue Decadron IV (EOT 01/14) - Continue inhalers - Continue guaifenesin - Wean oxygen as tolerated - Start ambulation with PT/OT - Repeat CXR Nausea Poor appetite - Nausea is chronic and treated with promethazine - Discontinuing IV fluids today to improve oral intake - Continue promethazine Hypotension (mild) - resolved Chronic: Neuropathic pain - gabapentin Chronic pain - oxycodone 20 TID Tobacco dependence - nicotine patch Anxiety - Fluoxetine, Lorazepam Disposition: Pending. Begin ambulation. DVT prophylaxis: Enoxaparin Diet: Regular DANICA BAUTISTA DO 01/13/23 0444: Subjective Subjective/Events-last exam Patient still very weak Remains on oxygen Will initiate PT to get her out of bed Chronic nausea requiring promethazine IV antibiotics maintained along with steroids Review of Systems General: Fatigue Pulmonary: Dyspnea Objective Exam General: Alert, Oriented X3 Lungs: Other (scattered wheezes throughout) Heart: Regular Rate Psych/Mental Status: Mental Status NL Assessment/Plan Assessment/Plan Assess & Plan/Chief Complaint PT Wean oxygen Hep-Lock IV fluid Supervisory-Addendum Brief Verification & Attestation Participated in pt care: history, MDM, physical Personally performed: exam, history, MDM, supervision of care Care discussed with: Medical Student Procedures: n/a Results interpretation: Verified all documentation Verification and Attestation of Medical Student E/M Service A medical student performed and documented this service in my presence. I reviewed and verified all information documented by the medical student and made modifications to such information, when appropriate. I personally performed the physical exam and medical decision making. Danica Bautista, Jan 13, 2023,04:43 DHIRAJ ESPINOZA Jan 12, 2023 14:26 DANICA BAUTISTA DO Jan 13, 2023 04:44
--- NOTE | 2023-01-12 14:42 | Diagnostic Imaging Report ---
INDICATION: Cough. Pneumonia. COMPARISON: 01/11/2023. FINDINGS: Frontal and lateral radiographic views of the chest were obtained and show background chronic-appearing coarse interstitial prominence. There is no focal consolidation, large effusion, nor pneumothorax. Cardiac silhouette and pulmonary vasculature are within normal limits. Osseous structures show no acute abnormalities. IMPRESSION: 1. No acute cardiopulmonary process. Dictated by: Dictated on workstation # [id number]
[2023-01-12 16:08] VITALS: BP 99/54
[2023-01-12 19:19] VITALS: BP 128/68
[2023-01-12] MEDS: GABAPENTIN 300 MG CAPSULE PO SCH (19:58)
[2023-01-12] MEDS: MONTELUKAST 10 MG TABLET PO SCH (19:58)
[2023-01-12] MEDS: MELATONIN 10 MG TABLET PO SCH (19:58)
--- NOTE | 2023-01-12 20:58 | Physician Query-Final Dx ---
SHWETHA FERRO 01/12/232057: Final Diagnosis Give Final Diagnosis Please give Final Diagnosis The medical record reflects the following clinical evidence: Clinical Indicators: Admission VS/Labs: HR 93, RR 18, BP 124/63 decreased to 77/31, SpO2 91% sat on room air, T 38.7, WBC 11.3, Lactic acid 2.53 then 0.77 Risk Factor(s): Bilateral pneumonia with Acute respiratory failure, Hx of Smoking Treatment: ER: Azithromycin IV, ceftriaxone IV, normal saline bolus 500 mL, then an additional 1L given Sepsis, unspecified organism, present on admission, now resolving Other explanation of clinical findings Unable to determine (no explanation for clinical findings) Please clarify and document your clinical opinion in the progress notes and discharge summary including the definitive and/or presumptive diagnosis, (suspected or probable), related to the above clinical findings. Please include clinical findings supporting your diagnosis. Shwetha Ferro, MSN, RN Clinical Utilization Engineer [phone] [email or web address] ASHLEY BAUTISTA DO 01/13/23 0453: Final Diagnosis Give Final Diagnosis Sepsis SHWETHA FERRO Jan 12, 2023 20:58 ASHLEY BAUTISTA DO Jan 13, 2023 04:53
[2023-01-12 23:28] VITALS: BP 137/74
[2023-01-13] MEDS: RT-Ipratropium/Albuterol NEB 3 ML VIAL INH SCH ×3 (02:38→14:26)
[2023-01-13 03:19] VITALS: BP 117/63
[2023-01-13] MEDS: PANTOPRAZOLE 20 MG TABLET PO SCH (05:03)
[2023-01-13] MEDS: PROMETHAZINE 25 MG TABLET PO PRN (05:12)
[2023-01-13 06:05] LABS: ALBUMIN 3.3 GM/DL (3.2-4.5); BASOPHILS % (AUTO) 0 % (0-10); EOSINOPHILS % (AUTO) 0 % (0-10); HEMATOCRIT 29 % (35-52); HEMOGLOBIN 9.7 g/dL (11.5-16.0); LYMPHOCYTES # (AUTO) 1.7 10^3/uL (1.0-4.0); LYMPHOCYTES % (AUTO) 18 % (12-44); MEAN CORPUSCULAR HEMOGLOBIN 31 pg (25-34); MEAN CORPUSCULAR HGB CONC 33 g/dL (32-36); MEAN CORPUSCULAR VOLUME 91 fL (80-99); MEAN PLATELET VOLUME 9.6 fL (9.0-12.2); MONOCYTES # (AUTO) 0.4 10^3/uL (0.0-1.0); MONOCYTES % (AUTO) 4 % (0-12); NEUTROPHILS # (AUTO) 7.4 10^3/uL (1.8-7.8); NEUTROPHILS % (AUTO) 77 % (42-75); PLATELET COUNT 293 10^3/uL (130-400); POTASSIUM 4.1 MMOL/L (3.6-5.0); WHITE BLOOD COUNT 9.5 10^3/uL (4.3-11.0)
[2023-01-13 06:06] LABS: CALCIUM 8.6 MG/DL (8.5-10.1)
[2023-01-13 06:08] LABS: TOTAL PROTEIN 6.1 GM/DL (6.4-8.2)
[2023-01-13 06:10] LABS: BILIRUBIN,TOTAL 0.3 MG/DL (0.1-1.0)
[2023-01-13 06:11] LABS: CREATININE SERUM 0.71 MG/DL (0.60-1.30)
[2023-01-13] MEDS: dexAMETHasone INJ 4 MG/ML SDV IV SCH (07:52)
[2023-01-13] MEDS: FLUoxetine 20 MG CAPSULE PO SCH (07:52)
[2023-01-13] MEDS: NICOTINE 21 MG PATCH TD SCH (07:53)
[2023-01-13] MEDS: AZITHROMYCIN 250 MG TABLET PO SCH (07:53)
[2023-01-13] MEDS: guaiFENesin 600 MG TABLET PO SCH (07:53)
[2023-01-13] MEDS: CARISOPRODOL 350 MG TABLET PO SCH ×2 (07:56→13:18)
[2023-01-13] MEDS: NICOTINE PATCH REMOVAL TP SCH (07:57)
[2023-01-13] MEDS: GABAPENTIN 100 MG CAPSULE PO SCH (07:57)
[2023-01-13] MEDS: DOCUSATE SODIUM 100 MG CAPSULE PO SCH (07:57)
[2023-01-13] MEDS: SENNOSIDES 8.6 MG TABLET PO SCH (07:58)
[2023-01-13] MEDS: LORATADINE 10 MG TABLET PO SCH (07:58)
[2023-01-13 08:05] VITALS: BP 138/64
[2023-01-13] MEDS: FLUTICASONE/VILANTEROL 200/25 MCG (14 DOSES) IH SCH (09:06)
[2023-01-13] MEDS: cefTRIAXone IV/IM 1,000 MG in NS (IVPB) 50 ML 50 ML IV SCH (11:29)
[2023-01-13 11:51] VITALS: BP 133/63
[2023-01-13] MEDS ORDERED: BENZ100C18 PO (12:58)
[2023-01-13] MEDS ORDERED: CEFD300C3 PO (12:58)
[2023-01-13] MEDS ORDERED: PRED10TA22 PO (12:58)
[2023-01-13] MEDS ORDERED: LORA10TA7 PO (12:58)
[2023-01-13] MEDS ORDERED: PROM25TA14 PO (12:58)
[2023-01-13] MEDS ORDERED: MONT-40 PO (12:58)
[2023-01-13] MEDS ORDERED: AZIT250T12 PO (12:58)
[2023-01-13] MEDS ORDERED: GUAI600T43 PO (12:58)
--- NOTE | 2023-01-13 12:59 | Discharge Summary ---
Diagnosis/Chief Complaint Date of Admission Jan 10, 2023 at 13:36 Date of Discharge Discharge Date: Jan 13, 2023 Discharge Diagnosis Acute on chronic respiratory failure - improving Bilateral pneumonia COPD exacerbation Tobacco dependence - Patient not oxygen dependent at home - Requiring 2L of supplemental oxygen roughly 50% of the time - Repeat CXR on 01/10 today showing slightly increased opacity in the LLL - Continue azithromycin and ceftriaxone (EOT 01/14) - Continue Decadron IV (EOT 01/14) - Continue inhalers - Continue guaifenesin - Wean oxygen as tolerated - Start ambulation with PT/OT - Repeat CXR Nausea Poor appetite - Nausea is chronic and treated with promethazine - Discontinuing IV fluids today to improve oral intake - Continue promethazine Hypotension (mild) - resolved Chronic: Neuropathic pain - gabapentin Chronic pain - oxycodone 20 TID Tobacco dependence - nicotine patch Anxiety - Fluoxetine, Lorazepam Disposition: Pending. Begin ambulation. DVT prophylaxis: Enoxaparin Diet: Regular Discharge Summary Discharge Physical Examination Allergies: Coded Allergies: methadone (Unverified Adverse Reaction, Severe, swelling, 05/15/22) Sulfa (Sulfonamide Antibiotics) (Unverified Adverse Reaction, Mild, hives, 05/15/22) Vitals & I&Os Vital Signs Date Time Temp Pulse Resp B/P (MAP) Pulse Ox O2 Delivery O2 Flow Rate FiO2 01/13/23 16:17 36.8 72 18 133/65 (87) 92 Room Air 01/13/23 08:00 2.00 General Appearance: Alert, Oriented X3, Cooperative Respiratory: Clear to Auscultation Cardiovascular: Regular Rate Psych/Mental Status: Mental Status NL Hospital Course Was the Problem List Reviewed?: Yes Ivanna is a 67 yo F with a PMH of non-oxygen dependent COPD on Trelegy, tobacco dependence, HTN and HLD amongst other chronic health conditions who was admitted on 01/10 for acute hypoxic respiratory failure due to bilateral pneumonia and COPD exacerbation. Due to mild hypotension noted in the ED, she was initially placed in cardiac stepdown. Treatment with azithromycin, ceftriaxone, IV decadron, inhalers and 2L of supplemental oxygen was initiated. She was transitioned to med-tele on Day 2 of hospitalization per stable blood pressure. Throughout her stay the patient had complaints of nausea (described as chronic in nature) causing poor appetite; despite re-iniation of home promethazine her oral intake remained minimal. By day 4 of hospitalization, the patient was stable on room air during rest. CXR was negative for focal consolidation or other acute cardiopulmonary process, though chronic-appearing coarse interstitial prominence were seen. (Of note, the patient has a chest CT done 03/2022 that was negative for suspicious pulmonary nodules). Oxygen studies done by respiratory therapy showed 93% oxygen saturation with rest and 88% oxygen saturation with exercise. The patient discharged this day with home medications and courses of cefdinir 300 PO BID, azithromycin 250 mg QDAY, and prednisone 10 MG qday for completion of pneumonia and COPD exacerbation treatment outpatient. She was also provided home oxygen. Labs (last 24 hrs) Laboratory Tests 01/10/23 10:40: White Blood Count 11.3H, Red Blood Count 3.95, Hemoglobin 12.4, Hematocrit 36, Mean Corpuscular Volume 92, Mean Corpuscular Hemoglobin 31, Mean Corpuscular Hemoglobin Concent 34, Red Cell Distribution Width 14.2, Platelet Count 328, Mean Platelet Volume 9.0, Immature Granulocyte % (Auto) 0, Neutrophils (%) (Auto) 88H, Lymphocytes (%) (Auto) 8L, Monocytes (%) (Auto) 3, Eosinophils (%) (Auto) 0, Basophils (%) (Auto) 0, Neutrophils # (Auto) 9.9H, Lymphocytes # (Auto) 0.9L, Monocytes # (Auto) 0.4, Eosinophils # (Auto) 0.1, Basophils # (Auto) 0.0, Immature Granulocyte # (Auto) 0.1, Neutrophils % (Manual) 84, Lymphocytes % (Manual) 7, Monocytes % (Manual) 5, Band Neutrophils 4, Blood Mo rphology Comment NORMAL, Sodium Level 130L, Potassium Level 4.5, Chloride Level 97L, Carbon Dioxide Level 21, Anion Gap 12, Blood Urea Nitrogen 9, Creatinine 0.98, Estimat Glomerular Filtration Rate 63, BUN/Creatinine Ratio 9, Glucose Level 142H, Lactic Acid Level 2.53*H, Calcium Level 8.8, Corrected Calcium 8.8, Total Bilirubin 0.4, Aspartate Amino Transf (AST/SGOT) 20, Alanine Aminotransferase (ALT/SGPT) 15, Alkaline Phosphatase 86, Total Protein 7.0, Albumin 4.0 01/10/23 10:45: Influenza Type A (RT-PCR) Not Detected, Influenza Type B (RT-PCR) Not Detected, SARS-CoV-2 RNA (RT-PCR) Not Detected 01/10/23 11:27: Urine Color YELLOW, Urine Clarity CLEAR, Urine pH 7.0, Urine Specific [place] 1.015L, Urine Protein 1+H, Urine Glucose (UA) NEGATIVE, Urine Ketones NEGATIVE, Urine Nitrite NEGATIVE, Urine Bilirubin NEGATIVE, Urine Urobilinogen 1.0, Urine Leukocyte Esterase NEGATIVE, Urine RBC (Auto) NEGATIVE, Urine RBC 0-2, Urine WBC NONE, Urine Squamous Epithelial Cells RARE, Urine Crystals NONE, Urine Bacteria NEGATIVE, Urine Casts NONE, Urine Mucus SMALLH, Urine Culture Indicated NO 01/10/23 14:47: Lactic Acid Level 0.77 01/11/23 04:21: White Blood Count 7.7, Red Blood Count 3.40L, Hemoglobin 10.4L, Hematocrit 32L, Mean Corpuscular Volume 94, Mean Corpuscular Hemoglobin 31, Mean Corpuscular Hemoglobin Concent 33, Red Cell Distribution Width 14.4, Platelet Count 282, Mean Platelet Volume 9.5, Immature Granulocyte % (Auto) 0, Neutrophils (%) (Auto) 86H, Lymphocytes (%) (Auto) 10L, Monocytes (%) (Auto) 3, Eosinophils (%) (Auto) 0, Basophils (%) (Auto) 0, Neutrophils # (Auto) 6.6, Lymphocytes # (Auto) 0.8L, Monocytes # (Auto) 0.2, Eosinophils # (Auto) 0.0, Basophils # (Auto) 0.0, Immature Granulocyte # (Auto) 0.0, Sodium Level 134L, Potassium Level 4.3, Chloride Level 105, Carbon Dioxide Level 20L, Anion Gap 9, Blood Urea Nitrogen 9, Creatinine 0.81, Estimat Glomerular Filtration Rate 79, BUN/Creatinine Ratio 11, Glucose Level 113H, Calcium Level 8.4L, Corrected Calcium 8.9, Total Bilirubin 0.3, Aspartate Amino Transf (AST/SGOT) 24, Alanine Aminotransferase (ALT/SGPT) 20, Alkaline Phosphatase 74, Total Protein 5.7L, Albumin 3.4 01/12/23 03:55: White Blood Count 7.9, Red Blood Count 3.16L, Hemoglobin 9.8L, Hematocrit 30L, Mean Corpuscular Volume 93, Mean Corpuscular Hemoglobin 31, Mean Corpuscular Hemoglobin Concent 33, Red Cell Distribution Width 14.5, Platelet Count 277, Mean Platelet Volume 9.6, Immature Granulocyte % (Auto) 1, Neutrophils (%) (Auto) 85H, Lymphocytes (%) (Auto) 11L, Monocytes (%) (Auto) 3, Eosinophils (%) (Auto) 0, Basophils (%) (Auto) 0, Neutrophils # (Auto) 6.7, Lymphocytes # (Auto) 0.9L, Monocytes # (Auto) 0.3, Eosinophils # (Auto) 0.0, Basophils # (Auto) 0.0, Immature Granulocyte # (Auto) 0.1, Sodium Level 134L, Potassium Level 4.3, Chloride Level 104, Carbon Dioxide Level 19L, Anion Gap 11, Blood Urea Nitrogen 8, Creatinine 0.81, Estimat Glomerular Filtration Rate 79, BUN/Creatinine Ratio 10, Glucose Level 140H, Calcium Level 8.6, Corrected Calcium 9.2, Total Bilirubin 0.2, Aspartate Amino Transf (AST/SGOT) 14, Alanine Aminotransferase (ALT/SGPT) 14, Alkaline Phosphatase 71, Total Protein 5.9L, Albumin 3.3 01/13/23 05:14: White Blood Count 9.5, Red Blood Count 3.18L, Hemoglobin 9.7L, Hematocrit 29L, Mean Corpuscular Volume 91, Mean Corpuscular Hemoglobin 31, Mean Corpuscular Hemoglobin Concent 33, Red Cell Distribution Width 14.4, Platelet Count 293, Mean Platelet Volume 9.6, Immature Granulocyte % (Auto) 1, Neutrophils (%) (Auto) 77H, Lymphocytes (%) (Auto) 18, Monocytes (%) (Auto) 4, Eosinophils (%) (Auto) 0, Basophils (%) (Auto) 0, Neutrophils # (Auto) 7.4, Lymphocytes # (Auto) 1.7, Monocytes # (Auto) 0.4, Eosinophils # (Auto) 0.0, Basophils # (Auto) 0.0, Immature Granulocyte # (Auto) 0.1, Sodium Level 128L, Potassium Level 4.1, Chloride Level 97L, Carbon Dioxide Level 23, Anion Gap 8, Blood Urea Nitrogen 7, Creatinine 0.71, Estimat Glomerular Filtration Rate 93, BUN/Creatinine Ratio 10, Glucose Level 116H, Calcium Level 8.6, Corrected Calcium 9.2, Total Bilirubin 0.3, Aspartate Amino Transf (AST/SGOT) 12, Alanine Aminotransferase (ALT/SGPT) 14, Alkaline Phosphatase 66, Total Protein 6.1L, Albumin 3.3 Microbiology 01/10/23 Blood Culture - Preliminary, Resulted Pending Labs Microbiology Date/Time Source Procedure Growth Status 01/10/23 10:57 Peripheral Rt Ac Blood Culture - Preliminary Resulted 01/10/23 10:40 Peripheral Rt Ac Blood Culture - Preliminary Resulted Laboratory Tests 01/10/23 10:40: White Blood Count 11.3, Red Blood Count 3.95, Hemoglobin 12.4, Hematocrit 36, Mean Corpuscular Volume 92, Mean Corpuscular Hemoglobin 31, Mean Corpuscular Hemoglobin Concent 34, Red Cell Distribution Width 14.2, Platelet Count 328, Mean Platelet Volume 9.0, Immature Granulocyte % (Auto) 0, Neutrophils (%) (Auto) 88, Lymphocytes (%) (Auto) 8, Monocytes (%) (Auto) 3, Eosinophils (%) (Auto) 0, Basophils (%) (Auto) 0, Neutrophils # (Auto) 9.9, Lymphocytes # (Auto) 0.9, Monocytes # (Auto) 0.4, Eosinophils # (Auto) 0.1, Basophils # (Auto) 0.0, Immature Granulocyte # (Auto) 0.1, Neutrophils % (Manual) 84, Lymphocytes % (Manual) 7, Monocytes % (Manual) 5, Band Neutrophils 4, Blood Morphology Comment NORMAL, Sodium Level 130, Potassium Level 4.5, Chloride Level 97, Carbon Dioxide Level 21, Anion Gap 12, Blood Urea Nitrogen 9, Creatinine 0.98, Estimat Glomerular Filtration Rate 63, BUN/Creatinine Ratio 9, Glucose Level 142, Lactic Acid Level 2.53, Calcium Level 8.8, Corrected Calcium 8.8, Total Bilirubin 0.4, Aspartate Amino Transf (AST/SGOT) 20, Alanine Aminotransferase (ALT/SGPT) 15, Alkaline Phosphatase 86, Total Protein 7.0, Albumin 4.0 01/10/23 10:45: Influenza Type A (RT-PCR) Not Detected, Influenza Type B (RT-PCR) Not Detected, SARS-CoV-2 RNA (RT-PCR) Not Detected 01/10/23 11:27: Urine Color YELLOW, Urine Clarity CLEAR, Urine pH 7.0, Urine Specific [place] 1.015, Urine Protein 1+, Urine Glucose (UA) NEGATIVE, Urine Ketones NEGATIVE, Urine Nitrite NEGATIVE, Urine Bilirubin NEGATIVE, Urine Urobilinogen 1.0, Urine Leukocyte Esterase NEGATIVE, Urine RBC (Auto) NEGATIVE, Urine RBC 0-2, Urine WBC NONE, Urine Squamous Epithelial Cells RARE, Urine Crystals NONE, Urine Bacteria NEGATIVE, Urine Casts NONE, Urine Mucus SMALL, Urine Culture Indicated NO 01/10/23 14:47: Lactic Acid Level 0.77 01/11/23 04:21: White Blood Count 7.7, Red Blood Count 3.40, Hemoglobin 10.4, Hematocrit 32, Mean Corpuscular Volume 94, Mean Corpuscular Hemoglobin 31, Mean Corpuscular Hemoglobin Concent 33, Red Cell Distribution Width 14.4, Platelet Count 282, Mean Platelet Volume 9.5, Immature Granulocyte % (Auto) 0, Neutrophils (%) (Auto) 86, Lymphocytes (%) (Auto) 10, Monocytes (%) (Auto) 3, Eosinophils (%) (Auto) 0, Basophils (%) (Auto) 0, Neutrophils # (Auto) 6.6, Lymphocytes # (Auto) 0.8, Monocytes # (Auto) 0.2, Eosinophils # (Auto) 0.0, Basophils # (Auto) 0.0, Immature Granulocyte # (Auto) 0.0, Neutrophils % (Manual) [Pending], Sodium Level 134, Potassium Level 4.3, Chloride Level 105, Carbon Dioxide Level 20, Anion Gap 9, Blood Urea Nitrogen 9, Creatinine 0.81, Estimat Glomerular Filtration Rate 79, BUN/Creatinine Ratio 11, Glucose Level 113, Calcium Level 8.4, Corrected Calcium 8.9, Total Bilirubin 0.3, Aspartate Amino Transf (AST/SGOT) 24, Alanine Aminotransferase (ALT/SGPT) 20, Alkaline Phosphatase 74, Total Protein 5.7, Albumin 3.4 01/12/23 03:55: White Blood Count 7.9, Red Blood Count 3.16, Hemoglobin 9.8, Hematocrit 30, Mean Corpuscular Volume 93, Mean Corpuscular Hemoglobin 31, Mean Corpuscular Hemoglobin Concent 33, Red Cell Distribution Width 14.5, Platelet Count 277, Me an Platelet Volume 9.6, Immature Granulocyte % (Auto) 1, Neutrophils (%) (Auto) 85, Lymphocytes (%) (Auto) 11, Monocytes (%) (Auto) 3, Eosinophils (%) (Auto) 0, Basophils (%) (Auto) 0, Neutrophils # (Auto) 6.7, Lymphocytes # (Auto) 0.9, Monocytes # (Auto) 0.3, Eosinophils # (Auto) 0.0, Basophils # (Auto) 0.0, Immature Granulocyte # (Auto) 0.1, Sodium Level 134, Potassium Level 4.3, Chloride Level 104, Carbon Dioxide Level 19, Anion Gap 11, Blood Urea Nitrogen 8, Creatinine 0.81, Estimat Glomerular Filtration Rate 79, BUN/Creatinine Ratio 10, Glucose Level 140, Calcium Level 8.6, Corrected Calcium 9.2, Total Bilirubin 0.2, Aspartate Amino Transf (AST/SGOT) 14, Alanine Aminotransferase (ALT/SGPT) 14, Alkaline Phosphatase 71, Total Protein 5.9, Albumin 3.3 01/13/23 05:14: White Blood Count 9.5, Red Blood Count 3.18, Hemoglobin 9.7, Hematocrit 29, Mean Corpuscular Volume 91, Mean Corpuscular Hemoglobin 31, Mean Corpuscular Hemoglobin Concent 33, Red Cell Distribution Width 14.4, Platelet Count 293, Mean Platelet Volume 9.6, Immature Granulocyte % (Auto) 1, Neutrophils (%) (Auto) 77, Lymphocytes (%) (Auto) 18, Monocytes (%) (Auto) 4, Eosinophils (%) (Auto) 0, Basophils (%) (Auto) 0, Neutrophils # (Auto) 7.4, Lymphocytes # (Auto) 1.7, Monocytes # (Auto) 0.4, Eosinophils # (Auto) 0.0, Basophils # (Auto) 0.0, Immature Granulocyte # (Auto) 0.1, Sodium Level 128, Potassium Level 4.1, Chloride Level 97, Carbon Dioxide Level 23, Anion Gap 8, Blood Urea Nitrogen 7, Creatinine 0.71, Estimat Glomerular Filtration Rate 93, BUN/Creatinine Ratio 10, Glucose Level 116, Calcium Level 8.6, Corrected Calcium 9.2, Total Bilirubin 0.3, Aspartate Amino Transf (AST/SGOT) 12, Alanine Aminotransferase (ALT/SGPT) 14, Alkaline Phosphatase 66, Total Protein 6.1, Albumin 3.3 Discharge Home Medications: Active Scripts Active Cefdinir 300 Mg Capsule 300 Mg PO BID Prednisone 10 Mg Tab.ds.pk 10 Mg PO DAILY Take 6 tabs(60mg)daily,decrease by 1 tab(10MG)daily. Mucinex (Guaifenesin) 600 Mg Tab.er.12h 600 Mg PO BID Montelukast Sodium 10 Mg Tablet 10 Mg PO HS Tessalon Perles (Benzonatate) 100 Mg Capsule 200 Mg PO Q6HR PRN Azithromycin 250 Mg Tablet 250 Mg PO DAILY Loratadine 10 Mg Tablet 10 Mg PO DAILY Promethazine Tablet (Promethazine HCl) 25 Mg Tablet 25 Mg PO Q4H PRN Reported Benadryl (Diphenhydramine HCl) 25 Mg Capsule 25 Mg PO DAILY PRN Ibuprofen 200 Mg Tablet 400 Mg PO Q8H PRN TAKES 2 (200MG) TABS Tylenol Extra Strength (Acetaminophen) 500 Mg Tablet 1,000 Mg PO Q8H PRN TAKES 2 (500MG) TABS Melatonin 10 Mg Tablet 10 Mg PO HS Senokot (Sennosides) 8.6 Mg Tablet 8.6 Mg PO DAILY PRN Ativan (Lorazepam) 0.5 Mg Tablet 0.5 Mg PO QID PRN Gabapentin 100 Mg Capsule 300 Mg PO HS TAKES 3 (100MG) CAPS Gabapentin 100 Mg Capsule 100 Mg PO DAILY Oxycodone HCl 20 Mg Tablet 20 Mg PO TID PRN Fluoxetine HCl 20 Mg Capsule 20 Mg PO DAILY TAKES 20MG CAP WITH 40MG CAP TO EQUAL 60MG Fluoxetine HCl 40 Mg Capsule 40 Mg PO DAILY TAKES 40MG CAPS WITH 20MG CAPS TO EQUAL 60MG Omeprazole 20 Mg Tablet.dr 20 Mg PO DAILY Carisoprodol 350 Mg Tablet 350 Mg PO QID Instructions to patient/family Please see electronic discharge instructions given to patient. ASHLEY BAUTISTA DO Jan 13, 2023 12:59
--- NOTE | 2023-01-13 13:35 | Physical Therapy Progress Note ---
Therapy Progress Note Patient observed ambulating independently with FWW in hallway. RN confirms patient has been up independently since yesterday. No skilled PT indicated. JALEN IRELAND PT Jan 13, 2023 13:35
[2023-01-13] MEDS: ENOXAPARIN 40 MG/0.4 ML SYRINGE SC SCH (15:11)
--- NOTE | 2023-01-13 15:22 | Progress Note ---
DHIRAJ ESPINOZA 01/13/23 1522: Progress Note Ivanna is a 67 yo F with a PMH of non-oxygen dependent COPD on Trelegy, tobacco dependence, HTN and HLD amongst other chronic health conditions who was admitted on 01/10 for acute hypoxic respiratory failure due to bilateral pneumonia and COPD exacerbation. Due to mild hypotension noted in the ED, she was initially placed in cardiac stepdown. Treatment with azithromycin, ceftriaxone, IV decadron, inhalers and 2L of supplemental oxygen was initiated. She was transitioned to med-tele on Day 2 of hospitalization per stable blood pressure. Throughout her stay the patient had complaints of nausea (described as chronic in nature) causing poor appetite; despite re-iniation of home promethazine her oral intake remained minimal. By day 4 of hospitalization, the patient was stable on room air during rest. CXR was negative for focal consolidation or other acute cardiopulmonary process, though chronic-appearing coarse interstitial prominence were seen. (Of note, the patient has a chest CT done 03/2022 that was negative for suspicious pulmonary nodules). Oxygen studies done by respiratory therapy showed 93% oxygen saturation with rest and 88% oxygen saturation with exercise. The patient discharged this day with home medications and courses of cefdinir 300 PO BID, azithromycin 250 mg QDAY, and prednisone 10 MG qday for completion of pneumonia and COPD exacerbation treatment outpatient. She was also provided home oxygen. DANICA BAUTISTA DO 01/13/231: Supervisory-Addendum Brief Verification & Attestation Participated in pt care: history, MDM, physical Personally performed: exam, history, MDM, supervision of care Care discussed with: Medical Student Procedures: n/a Results interpretation: Verified all documentation Verification and Attestation of Medical Student E/M Service A medical student performed and documented this service in my presence. I reviewed and verified all information documented by the medical student and made modifications to such information, when appropriate. I personally performed the physical exam and medical decision making. Danica Bautista, Jan 13, 2023,21:21 DHIRAJ ESPINOZA Jan 13, 2023 15:22 DANICA BAUTISTA DO Jan 13, 2023 21:21
[2023-01-13 16:17] VITALS: BP 133/65
== END 2023-01-13 17:00 | disposition home or self-care (01) | DRG 871 ==
LOC: EDUNIT# 10:32 → ER 10:33 → CSD 13:36 → 4TH 01-11 14:14
PROVIDERS: ADMIT Internal Medicine; ATTEND Internal Medicine
DX: A41.9 Sepsis, unspecified organism (principal); J18.9 Pneumonia, unspecified organism; J96.01 Acute respiratory failure with hypoxia; J44.0 Chronic obstructive pulmonary disease with (acute) lower respiratory infection; J44.1 Chronic obstructive pulmonary disease with (acute) exacerbation; F17.210 Nicotine dependence, cigarettes, uncomplicated; I95.9 Hypotension, unspecified; R11.0 Nausea; G89.29 Other chronic pain; F41.9 Anxiety disorder, unspecified; I10 Essential (primary) hypertension; Z11.52 Encounter for screening for COVID-19; Z90.5 Acquired absence of kidney; E78.00 Pure hypercholesterolemia, unspecified; K21.9 Gastro-esophageal reflux disease without esophagitis; M19.90 Unspecified osteoarthritis, unspecified site; M54.9 Dorsalgia, unspecified; F32.A Depression, unspecified; G62.9 Polyneuropathy, unspecified
CPT/HCPCS: 36415; 71045; 71046; 80053; 81000; 83605; 85007; 85025; 85027; 87040; 87636; 94640; 94760; 94761; 96361; 96365; 96367; 96375

== ENCOUNTER 2023-01-17 16:49 | Emergency (ER) | payer MEDICARE, OTHER ==
[~2023-01-17] VITALS: Ht 157.4 cm; Wt 56.5 kg
[~2023-01-17 16:49] MED LIST changes: +ACET-2267 PO; +AZIT250T12 PO; +BENZ100C18 PO; +CEFD300C3 PO; +DIPH25CA79 PO; +FLUO20CA48 PO; +GABA-486 PO; +GUAI600T43 PO; +IBUP-2473 PO; +LORA-404 PO; +LORA10TA7 PO; +MELA10TA2 PO; +MONT-40 PO; +PRED10TA22 PO; +PROM25TA14 PO
[2023-01-17 17:58] LABS: BASOPHILS % (AUTO) 0 % (0-10); EOSINOPHILS % (AUTO) 0 % (0-10); HEMATOCRIT 31 % (35-52); HEMOGLOBIN 10.5 g/dL (11.5-16.0); LYMPHOCYTES # (AUTO) 1.7 10^3/uL (1.0-4.0); LYMPHOCYTES % (AUTO) 18 % (12-44); MEAN CORPUSCULAR HEMOGLOBIN 31 pg (25-34); MEAN CORPUSCULAR HGB CONC 33 g/dL (32-36); MEAN CORPUSCULAR VOLUME 92 fL (80-99); MEAN PLATELET VOLUME 9.1 fL (9.0-12.2); MONOCYTES # (AUTO) 0.6 10^3/uL (0.0-1.0); MONOCYTES % (AUTO) 7 % (0-12); NEUTROPHILS # (AUTO) 6.8 10^3/uL (1.8-7.8); NEUTROPHILS % (AUTO) 73 % (42-75); PLATELET COUNT 483 10^3/uL (130-400); WHITE BLOOD COUNT 9.3 10^3/uL (4.3-11.0)
--- NOTE | 2023-01-17 18:04 | ED General ---
General Chief Complaint: Respiratory Problems Stated Complaint: SOB WHEN WALKING Nursing Triage Note: PT TO RM 9 WITH DAUGHTER WITH C/O WEAKNESS, SOB SINCE BEING HOME FROM [facility] WITH PNEUMONIA Source of Information: Patient, Family, Old Records Exam Limitations: No Limitations History of Present Illness Date Seen by Provider: Jan 17, 2023 Time Seen by Provider: 17:33 Allergies and Home Medications Allergies Coded Allergies: methadone (Unverified Adverse Reaction, Severe, swelling, 05/15/22) Sulfa (Sulfonamide Antibiotics) (Unverified Adverse Reaction, Mild, hives, 05/15/22) Patient Home Medication List Home Medication List Reviewed: Yes Acetaminophen (Tylenol Extra Strength) 500 Mg Tablet, 1,000 MG PO Q8H PRN for PAIN-MILD (1-4), (Reported) Entered as Reported by: YAO CROW on 01/10/23 1434 Albuterol Sulfate (Albuterol Sulfate) 2.5 Mg/3 Ml (0.083 %) Vial.neb, 2.5 MG INH Q4H PRN for WHEEZING Prescribed by: MONISHA RICKETTS on 01/17/23 1911 Azithromycin (Azithromycin) 250 Mg Tablet, 250 MG PO DAILY Prescribed by: ASHLEY BAUTISTA on 01/13/23 1258 Benzonatate (Tessalon Perles) 100 Mg Capsule, 200 MG PO Q6HR PRN for cough Prescribed by: ASHLEY BAUTISTA on 01/13/23 1258 Carisoprodol (Carisoprodol) 350 Mg Tablet, 350 MG PO QID, (Reported) Entered as Reported by: MAJOR JOSÉ on 08/05/21 1547 Cefdinir (Cefdinir) 300 Mg Capsule, 300 MG PO BID Prescribed by: ASHELY BAUTISTA on 01/13/23 1258 Diphenhydramine HCl (Benadryl) 25 Mg Capsule, 25 MG PO DAILY PRN for ALLERGIES, (Reported) Entered as Reported by: YAO CROW on 01/10/23 1434 Fluoxetine HCl (Fluoxetine HCl) 40 Mg Capsule, 40 MG PO DAILY, (Reported) Entered as Reported by: YAO CROW on 01/10/23 1429 Fluoxetine HCl (Fluoxetine HCl) 20 Mg Capsule, 20 MG PO DAILY, (Reported) Entered as Reported by: YAO CROW on 01/10/23 1429 Gabapentin (Gabapentin) 100 Mg Capsule, 100 MG PO DAILY, (Reported) Entered as Reported by: YAO CROW on 01/10/23 1429 Gabapentin (Gabapentin) 100 Mg Capsule, 300 MG PO HS, (Reported) Entered as Reported by: YAO CROW on 01/10/23 1429 Guaifenesin (Mucinex) 600 Mg Tab.er.12h, 600 MG PO BID Prescribed by: ASHLEY BAUTISTA on 01/13/23 1258 Ibuprofen (Ibuprofen) 200 Mg Tablet, 400 MG PO Q8H PRN for PAIN-MILD (1-4), (Reported) Entered as Reported by: YAO CROW on 01/10/23 1434 Loratadine (Loratadine) 10 Mg Tablet, 10 MG PO DAILY Prescribed by: ASHLEY BAUTISTA on 01/13/23 1258 Lorazepam (Ativan) 0.5 Mg Tablet, 0.5 MG PO QID PRN for ANXIETY, (Reported) Entered as Reported by: YAO CROW on 01/10/23 1430 Melatonin (Melatonin) 10 Mg Tablet, 10 MG PO HS, (Reported) Entered as Reported by: YAO CROW on 01/10/23 1434 Montelukast Sodium (Montelukast Sodium) 10 Mg Tablet, 10 MG PO HS Prescribed by: ASHLEY BAUTISTA on 01/13/23 1258 Omeprazole (Omeprazole) 20 Mg Tablet.dr, 20 MG PO DAILY, (Reported) Entered as Reported by: MAJOR JOSÉ on 08/05/21 1547 Oxycodone HCl (Oxycodone HCl) 20 Mg Tablet, 20 MG PO TID PRN for PAIN-MODERATE TO SEVERE, (Reported) Entered as Reported by: YAO CROW on 01/10/23 1429 Prednisone (Prednisone) 10 Mg Tab.ds.pk, 10 MG PO DAILY Prescribed by: ASHLEY BAUTISTA on 01/13/23 1258 Promethazine HCl (Promethazine Tablet) 25 Mg Tablet, 25 MG PO Q4H PRN for CAMILA SEA/VOMITING-2ND LINE Prescribed by: ASHLEY BAUTISTA on 01/13/23 1258 Sennosides (Senokot) 8.6 Mg Tablet, 8.6 MG PO DAILY PRN for CONSTIPATION, (Reported) Entered as Reported by: YAO CROW on 01/10/23 1434 Past Qobkfzg-Rwqlde-Clldaf Hx Patient Social History Tobacco Use?: Yes Tobacco type used: Cigarettes Substance use?: No Alcohol Use?: No Pt feels they are or have been: No Immunizations Up To Date First/Initial COVID19 Vaccinat: 2020 Second COVID19 Vaccination Abhinav: 2020 Third COVID19 Vaccination Date: 2021 Seasonal Allergies Seasonal Allergies: No Past Medical History Surgery/Hospitalization HX: RT KIDNEY REMOVED, TUBAL LIGATION, HTN, BACK SURGERY Surgeries: Yes (RIGHT NEPHRECTOMY, X3 BACK SURGERY, SINUS) Nephrectomy, Orthopedic Respiratory: No Cardiac: Yes High Cholesterol, Hypertension, Palpitations Neurological: Yes (HX RADICULOPATHY) Reproductive Disorders: No Genitourinary: No Gastrointestinal: Yes Gastroesophageal Reflux, Chronic Constipation Musculoskeletal: Yes Arthritis, Chronic Back Pain Endocrine: No HEENT: No Cancer: No Psychosocial: Yes Depression Integumentary: No Blood Disorders: No Family Medical History Heart Disease, Diabetes Physical Exam Vital Signs Vital Signs - First Documented 01/17/23 17:08 Temp 35.7 Pulse 65 Resp 26 B/P (MAP) 121/73 (89) Pulse Ox 100 O2 Delivery Nasal Cannula O2 Flow Rate 3.00 Capillary Refill : Height, Weight, BMI Height: 5'2.00" Weight: 131lbs. oz. [id number]; 22.00 BMI Method:Stated Progress/Results/Core Measures Suspected Sepsis SIRS Temperature: Pulse: 65 Respiratory Rate: 26 Laboratory Tests 01/17/23 17:48: White Blood Count 9.3 Blood Pressure 121 /73 Mean: 89 Laboratory Tests 01/17/23 17:48: Creatinine 0.75, Platelet Count 483H, Total Bilirubin 0.2 Results/Orders Lab Results Laboratory Tests Test 01/17/23 17:48 01/17/23 17:55 01/17/23 18:05 Range/Units White Blood Count 9.3 4.3-11.0 10^3/uL Red Blood Count 3.40 L 3.80-5.11 10^6/uL Hemoglobin 10.5 L 11.5-16.0 g/dL Hematocrit 31 L 35-52 % Mean Corpuscular Volume 92 80-99 fL Mean Corpuscular Hemoglobin 31 25-34 pg Mean Corpuscular Hemoglobin Concent 33 32-36 g/dL Red Cell Distribution Width 14.6 H 10.0-14.5 % Platelet Count 483 H 130-400 10^3/uL Mean Platelet Volume 9.1 9.0-12.2 fL Immature Granulocyte % (Auto) 2 % Neutrophils (%) (Auto) 73 42-75 % Lymphocytes (%) (Auto) 18 12-44 % Monocytes (%) (Auto) 7 0-12 % Eosinophils (%) (Auto) 0 0-10 % Basophils (%) (Auto) 0 0-10 % Neutrophils # (Auto) 6.8 1.8-7.8 10^3/uL Lymphocytes # (Auto) 1.7 1.0-4.0 10^3/uL Monocytes # (Auto) 0.6 0.0-1.0 10^3/uL Eosinophils # (Auto) 0.0 0.0-0.3 10^3/uL Basophils # (Auto) 0.0 0.0-0.1 10^3/uL Immature Granulocyte # (Auto) 0.2 H 0.0-0.1 10^3/uL D-Dimer 0.33 0.00-0.49 UG/ML Sodium Level 131 L 135-145 MMOL/L Potassium Level 4.0 3.6-5.0 MMOL/L Chloride Level 98 98-107 MMOL/L Carbon Dioxide Level 25 21-32 MMOL/L Anion Gap 8 5-14 MMOL/L Blood Urea Nitrogen 9 7-18 MG/DL Creatinine 0.75 0.60-1.30 MG/DL Estimat Glomerular Filtration Rate 87 BUN/Creatinine Ratio 12 Glucose Level 109 H 70-105 MG/DL Calcium Level 8.8 8.5-10.1 MG/DL Corrected Calcium 9.1 8.5-10.1 MG/DL Magnesium Level 1.9 1.6-2.4 MG/DL Total Bilirubin 0.2 0.1-1.0 MG/DL Aspartate Amino Transf (AST/SGOT) 15 5-34 U/L Alanine Aminotransferase (ALT/SGPT) 24 0-55 U/L Alkaline Phosphatase 65 40-136 U/L Troponin I < 0.028 <0.028 NG/ML C-Reactive Protein High Sensitivity 1.97 H 0.00-0.50 MG/DL B-Type Natriuretic Peptide 83.5 <100.0 PG/ML Total Protein 6.6 6.4-8.2 GM/DL Albumin 3.6 3.2-4.5 GM/DL Influenza Type A (RT-PCR) Not Detected Not Detecte Influenza Type B (RT-PCR) Not Detected Not Detecte SARS-CoV-2 RNA (RT-PCR) Not Detected Not Detecte Urine Color YELLOW Urine Clarity CLEAR Urine pH 7.0 5-9 Urine Specific [place] 1.020 1.016-1.022 Urine Protein NEGATIVE NEGATIVE Urine Glucose (UA) NEGATIVE NEGATIVE Urine Ketones NEGATIVE NEGATIVE Urine Nitrite NEGATIVE NEGATIVE Urine Bilirubin NEGATIVE NEGATIVE Urine Urobilinogen 0.2 < = 1.0 MG/DL Urine Leukocyte Esterase NEGATIVE NEGATIVE Urine RBC (Auto) NEGATIVE NEGATIVE Urine RBC NONE /HPF Urine WBC NONE /HPF Urine Squamous Epithelial Cells RARE /HPF Urine Crystals NONE /LPF Urine Bacteria NEGATIVE /HPF Urine Casts NONE /LPF Urine Mucus NEGATIVE /LPF Urine Culture Indicated NO My Orders Orders - MONISHA BURNHAM MD Cbc And Automated Diff (01/17/23 17:33) Comprehensive Metabolic Panel (01/17/23 17:33) Ed Iv/Invasive Line Start (01/17/23 17:33) Arterial Blood Gas (01/17/23 17:47) Bnp Tony (01/17/23 17:47) Hs C Reactive Protein (01/17/23 17:47) Ua Culture If Indicated (01/17/23 17:47) Covid 19 Inhouse Test (01/17/23 17:48) Influenza A And B By Pcr (01/17/23 17:48) Chest Pa/Lat (2 View) (01/17/23 17:48) Magnesium (01/17/23 17:48) Troponin I Tony (01/17/23 17:48) Ekg Tracing (01/17/23 17:48) Monitor-Rhythm Ecg Trace Only (01/17/23 17:48) Fibrin Degradation Products (01/17/23 17:48) Ipratropium/Albuterol Inh Soln (Ipratrop (01/17/23 19:00) Svn Small Volume Nebulizer (01/17/23 18:56) Medications Given in ED Current Medications Medications Dose Ordered Sig/Lukas Route Start Time Stop Time Status Last Admin Dose Admin Albuterol/ Ipratropium 3 ml ONCE ONCE INH 01/17/23 19:00 01/17/23 19:01 DC 01/17/23 19:02 3 ML Vital Signs/I&O 01/17/23 01/17/23 01/17/23 01/17/23 17:08 17:21 19:03 19:24 Temp 35.7 35.7 Pulse 65 60 Resp 26 19 B/P (MAP) 121/73 (89) 106/44 Pulse Ox 100 99 98 O2 Delivery Nasal Cannula Nasal Cannula Nasal Cannula Nasal Cannula O2 Flow Rate 3.00 3.00 2.00 2.00 2.00 Capillary Refill : Blood Pressure Mean: 89 ECG Initial ECG Impression Date: Jan 17, 2023 Initial ECG Impression Time: 18:36 Initial ECG Rate: 60 Initial ECG Rhythm: Normal Sinus Initial ECG Impression: Normal Comment Normal sinus rhythm with no ST elevation or depression. No abnormal intervals or axis deviation. Departure Impression Primary Impression: Dyspnea Qualified Codes: R06.09 - Other forms of dyspnea Additional Impressions: Hypoxia History of bradycardia Wheezing Disposition: HOME, SELF-CARE Condition: Improved Departure-Patient Inst. Decision time for Depature: 19:08 Referrals: MERCEDES ALFARO MD (PCP/Family) Primary Care Physician Patient Instructions: Bradycardia, Wheezing Add. Discharge Instructions: For wheezing and shortness of breath you may use nebulizer treatments at home every 4 hours as needed. Continue to use your oxygen at a flow rate to keep your oxygen level greater than 92%. Because you have noted some low heart rate, stop atenolol or metoprolol (any beta-joy) that you may be taking. These medicines slow your heart rate down. If you have sustained heart rates less than 50 bpm for more than 1 minute, return to the emergency room. If you are unsure about the accuracy of your pulse oximeter, feel your pulse at the same time to make sure they match. Follow-up with your primary care provider soon as possible. Please call first thing in the morning to make an appointment. Return to the emergency room if you have any other worsening of condition. All discharge instructions reviewed with patient and/or family. Voiced understanding. Scripts Albuterol Sulfate (Albuterol Sulfate) 2.5 Mg/3 Ml (0.083 %) Vial.neb 2.5 MG INH Q4H PRN for WHEEZING, #50 EA 1 Refill For wheezing or shortness of breath. Prov: MONISHA BURNHAM MD 01/17/23 MONISHA BURNHAM MD Jan 17, 2023 18:04
[2023-01-17 18:06] LABS: ALBUMIN 3.6 GM/DL (3.2-4.5); CHLORIDE 98 MMOL/L (98-107); SODIUM 131 MMOL/L (135-145)
[2023-01-17 18:07] LABS: CALCIUM 8.8 MG/DL (8.5-10.1)
[2023-01-17 18:09] LABS: GLUCOSE 109 MG/DL (70-105); TOTAL PROTEIN 6.6 GM/DL (6.4-8.2)
[2023-01-17 18:10] LABS: BILIRUBIN,TOTAL 0.2 MG/DL (0.1-1.0); CARBON DIOXIDE 25 MMOL/L (21-32)
[2023-01-17 18:12] LABS: ALKALINE PHOSPHATASE 65 U/L (40-136); CREATININE SERUM 0.75 MG/DL (0.60-1.30); GFR ESTIMATED 87
[2023-01-17 18:13] LABS: BUN/CREATININE RATIO 12
[2023-01-17 18:15] LABS: ALANINE AMINOTRANSFERASE 24 U/L (0-55); MAGNESIUM 1.9 MG/DL (1.6-2.4)
[2023-01-17 18:26] LABS: BACTERIA,URINE NEGATIVE /HPF; BILIRUBIN,URINE NEGATIVE (NEGATIVE); CLARITY,URINE CLEAR; COLOR,URINE YELLOW; GLUCOSE, URINE (UA) NEGATIVE (NEGATIVE); KETONES,URINE NEGATIVE (NEGATIVE); LEUKOCYTE ESTERASE ,URINE NEGATIVE (NEGATIVE); NITRITE,URINE NEGATIVE (NEGATIVE); PROTEIN,URINE NEGATIVE (NEGATIVE); SQUAMOUS EPITHELIAL CELL,UR RARE /HPF
--- NOTE | 2023-01-17 18:34 | Diagnostic Imaging Report ---
Indication: Weakness, shortness of breath. Examination: Chest 01/17/2023 Comparison: 01/12/2023 Findings: Coarse interstitial markings noted similar to previous imaging. Heart and pulmonary vasculature unremarkable. No pneumothorax. There is a small right effusion suspected. Impression: 1. Tiny right pleural effusion with coarsened markings throughout both lungs stable from previous. Dictated by: Dictated on workstation # [id number]
[2023-01-17] MEDS ORDERED: RT-Ipratropium/Albuterol NEB 3 ML VIAL INH ONE (19:00)
[2023-01-17] MEDS ORDERED: ALBU2.5V4 INH (19:11)
[2023-01-17 19:24] VITALS: BP 106/44
== END 2023-01-17 19:26 | disposition home or self-care (01) ==
LOC: EDUNIT# 16:49 → ER 16:52
DX: R06.00 Dyspnea, unspecified (principal); R06.2 Wheezing; R09.02 Hypoxemia; F17.210 Nicotine dependence, cigarettes, uncomplicated
CPT/HCPCS: 36415; 71046; 80053; 81000; 83735; 83880; 84484; 85025; 85379; 86141; 87636; 93005; 93041; 94640